=== PATIENT | male | born 1955 | race Caucasian/White ===

== ENCOUNTER 2017-03-09 06:43 | Day surgery (SDC) | payer OTHER ==
[~2017-03-09] VITALS: Ht 170.2 cm; Wt 85.3 kg
[~2017-03-09 06:43] MED LIST: ASPIRIN EC81 MG PO; CALCIUM-MAGNES1 EAC4 PO; CILOSTAZOL100 MG PO; DICLOFENAC SODI75 MG PO; FISH OIL 1,0001 EAC1 PO; FLAGYL500 MG PO; LEVAQUIN500 MG PO; NORCO 5-325 TA1 EACH PO; POTASSIUM99 M1 PO; PROCARDIA XL60 MG PO; VENTOLIN HFA18 GM IH; VITAMIN D250000 UNIT PO; VITAMIN D350000 UNIT PO; ZINC30 MG PO
[2017-03-09] MEDS ORDERED: ANORO ELLIPTA1 EACH INH (07:06)
--- NOTE | 2017-03-09 08:33 | NUR ---
03/09/17 0833 Karon Mcgill report from [facility].
--- NOTE | 2017-03-09 12:35 | NUR ---
PT SITTING IN BED WITH WARM BLANKET ON. HE SEEMED ALERT AND ORIENTED. NOT FIRST SCOPE, SEEMED TO HANDLE PREP APPROPRIATELY. REQUESTED PRAYER, WILL FOLLOW
--- NOTE | 2017-03-10 06:49 | OR ---
[facility] [address], [place] [address] Signed DATE OF PROCEDURE: 03/09/17 PREOPERATIVE DIAGNOSES Personal history of colonic polyps (2013) Open sigmoid resection with Castro side-to-end colorectal anastomosis November 2013. Paternal grandfather with colon cancer in his 70s. POSTOPERATIVE DIAGNOSIS: Internal anal skin tags. PROCEDURE: Colonoscopy without biopsy. ESTIMATED BLOOD LOSS: None. INDICATIONS Luiz is a 62-year-old gentleman who came in 2013 for colonoscopy. He had a large villous adenomatous polyp with focal high-grade dysplasia at 30 cm. He also had other polyps removed. We could not completely remove the polyp at 30 cm, so he had an open sigmoid resection with Castro side-to-end colorectal anastomosis. Fortunately, the pathology came back good with just adenomatous tissue. In addition, his maternal grandfather has history of colon cancer in his 70s. He has done very well from his lower GI standpoint. Unfortunately, he developed pneumonia and had to have that surgically drained. 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 He declined surgery and underwent chemo and radiation to his right upper lung. He has now done well following that. He has been off the oxygen but still gets a little short of breath. He came back in follow-up for repeat colonoscopy. He has been back to work and overall is doing much better. He did have a barium enema, about 6-8 months after his colon surgery and everything was excellent including the anastomosis. He said he is having good bowel movements and overall is feeling much better. I gave Mauricio pamphlet on colonoscopy in the office and we reviewed the nature of the test along with the risks including, but not limited to gas bloating, crampy abdominal pain, bleeding, perforation requiring surgery, and missed diagnosis. We also discussed the need for IV conscious sedation. He had expressed understanding and wished to proceed. PROCEDURE NOTE Luiz was taken in to our endoscopy suite and placed in the left lateral decubitus position. He was given IV sedation with 3 mg of Versed and 100 mcg of fentanyl. A digital rectal exam was performed and this was unremarkable. He does have some induration and little swelling to the prostate consistent with his age. After this, the adult colonoscope was introduced and advanced under direct visualization of the camera up to the cecum without difficulty. His prep was moderate. He had a couple of areas of liquid particulate stool matter that I could not quite irrigate and suction out completely. Nevertheless, we saw no pathology throughout the entire colon or rectum. He Electronically Signed By: DHARMESH GATICA MD 03/10/17 0649 PATIENT NAME: LUIZ HARVEY OPERATIVE REPORT DATE OF : 53 PHYSICIAN: DHARMESH GATICA MD REPORT #: [id number] REPORT IS CONFIDENTIAL AND NOT TO BE RELEASED WITHOUT AUTHORIZATION [address] [address] Signed has no diverticula and no polyps. We could easily see the Castro side-to-end colorectal anastomosis. It is widely patent. There is no ulceration or granulation tissue. We could see the end of the left colon where the koko are and it is well healed as well. The rectum itself was unremarkable. Upon retroflexion of scope, he had has a single internal anal skin tag. After this, the gas was suctioned out. The colonoscope removed. Luiz tolerated the procedure quite well. RECOMMENDATIONS I will see Luiz back in my office in 5 years for repeat colonoscopy. MD PAOLA Esqueda/Shy /[id number] cc: DO Cathryn Oneal MD Electronically Signed By: DHARMESH GATICA MD 03/10/17 0649 PATIENT NAME: LUIZ HARVEY OPERATIVE REPORT DATE OF : 53 PHYSICIAN: DHARMESH GATICA MD REPORT #: [id number] REPORT IS CONFIDENTIAL AND NOT TO BE RELEASED WITHOUT AUTHORIZATION
== END 2017-03-09 09:10 | disposition home or self-care (01) ==
LOC: DS 06:43 → OPS 06:43 → DS 08:15 → OPS 09:10
PROVIDERS: Colon & Rectal Surgery
PROC: 0DJD8ZZ Inspection of Lower Intestinal Tract, Via Natural or Artificial Opening Endoscopic (ICD-10-PCS; principal; 2017-03-09 08:15)
DX: Z12.11 Encounter for screening for malignant neoplasm of colon (principal); K64.4 Residual hemorrhoidal skin tags; K63.89 Other specified diseases of intestine; I10 Essential (primary) hypertension; M19.90 Unspecified osteoarthritis, unspecified site; J44.9 Chronic obstructive pulmonary disease, unspecified; E78.5 Hyperlipidemia, unspecified; M06.9 Rheumatoid arthritis, unspecified; Z80.0 Family history of malignant neoplasm of digestive organs; Z86.010 Personal history of colon polyps; Z87.01 Personal history of pneumonia (recurrent); Z85.118 Personal history of other malignant neoplasm of bronchus and lung; Z90.49 Acquired absence of other specified parts of digestive tract; Z98.890 Other specified postprocedural states; Z87.891 Personal history of nicotine dependence; Z88.0 Allergy status to penicillin; Z79.899 Other long term (current) drug therapy
CPT/HCPCS: 99152; 99153; J2250; J3010; J7120

== ENCOUNTER 2017-06-27 16:58 | Inpatient (IN) | payer OTHER ==
[~2017-06-27] VITALS: Ht 170.2 cm; Wt 87.0 kg
[~2017-06-27 16:58] MED LIST changes: +ANORO ELLIPTA1 EACH INH
--- NOTE | 2017-06-27 20:30 | NUR ---
PT ARRIVED FROM ED VIA STRETCHER. SON'S IN ROOM. PT WEARS 2 HEARING AIDES, NEEDS TO HAVE STAFF LOOK AT HIM TO HELP HIM HEAR. DR. DELGADO STATED THAT PT CAN SIGN A MEDICAL RELASE AND AM ABLE TO RELEASE THE RESULTS OF THE CSCAN. SONS AWARE. PT COMPLETED 2 LITERS FLUIDS, STARTED IN ER. 500 LR BOLUS INFUSING CURRENTLY.
--- NOTE | 2017-06-27 20:49 | NUR ---
SCD'S IN PLACE. TAUGHT PT THE CALL LIGHT, BED CONTROLS. O2 @ 2 LITERS CONTINUES, LR 500 BOLUS INFUSING.
--- NOTE | 2017-06-27 21:18 | NUR ---
LR BOLUS COMPLETE. TOTAL OF 1000 CC INFUSED ONCE PT ADMITTED TO ER. CTSCAN REVEIWED BY RN WELL ANTOINE HARVEY, PER DR. DELGADO REQUEST POST A MED RELEASE SIGNED. WELL DR DELGADO IN TO READ REPORT TO PT WELL GAVE A COPY TO PT.
--- NOTE | 2017-06-27 22:45 | NUR ---
PT STOOD TO VOID 450 CC. INCREASED SOB WHEN MOVING, BUT SATS REMAINED IN THE MID 90'S ON 2 L. PT STATES THAT HE FEELS "SO MUCH BETTER COMPARED TO COMING TO THE ER". STATES THAT HE ISN'T AT BASELINE YET. ASSISTED BACK TO BED, SCD'S IN PLACE, CALL CRUZ WITHIN REACH.
--- NOTE | 2017-06-28 00:33 | NUR ---
CHECKED IN ON PT. PT WOKE, DENIED DISCOMFORT. ASKED PT IF HE NEEDED ANYTHING, HE SAID NO. SAID HE WAS SLEEPING OFF AND ON, DENIES COUGHING. NOTED HOB HAS BEEN LOWERED BY PT TO 45% VS THE 95% HE WAS IN EARLIER. PULSE OX READING 96% ON 2L, WITH HR @ 100. PT STATES HE IS "OK AT THIS TIME".
--- NOTE | 2017-06-28 05:44 | NUR ---
WOKE PT FOR MORNING VS, NEEDED MORE FLUIDS. PT MOSTLY SLEEPY. NO CHANGE IN CONDITION SINCE LAST ASSESSMENT. DENIES COUGHING. IV FLUIDS CONTINUE PER ORDER. CALL CRUZ WITHIN REACH.
--- NOTE | 2017-06-28 06:32 | NUR ---
PT ADMITTED TO M/S FROM ER, AFTER HAVING SOB AND COUGH. H/O LUNG CANCER, 2016, TREATED WITH CHEMO/RADIATION. PT IN ISOLATION, ALTHOUGH BOTH INFLUENZA A AND B ARE NEGATIVE. PT IS A SBA, USES URINAL AT BEDSIDE. VOIDING ADEQUATE. CONTINOUS PULSEOX, SCD'S IN PLACE. DENIED PAIN, DENIED COUGING WITH ALL PT CONTACT THIS NURSE HAD. DID HAVE HOB ELEVATED 45-90% OFF AND ON. PT REFUSED OFFERS OF FOOD, STATING HE WILL BE HUNGRY AT BREAKFAST. IS HARD OF HEARING DESPITE WEARING MAC HEARING AIDES. STATES THAT HE "READS LIPS" WHICH IS DIFFICULT WITH THE FACIAL MASK STAFF ARE WEARING. NEED TO SPEAK TO HIS FACE WHEN TALKING TO HIM SO HE HEARS.
--- NOTE | 2017-06-28 07:50 | NUR ---
RN IN ROOM TO SEE PATIENT. PATIENT WILL CALL WHEN HE HAS URINATED.
--- NOTE | 2017-06-28 07:52 | NUR ---
RECIEVED REPORT FROM ALIRIO GARCIA AT PT'S DOORWAY. PT AWAKE, ALERT, ORIENTED X 4. PT [place], BUT ABLE TO UNDERSTAND THIS RN. ANSWERED QUESTIONS APROPRIATELY. DENIED SHORTNESS OF BREATH AT REST, REPORTED THAT SHORTNESS OF BREATH OCCURS WHEN HE MOVES, STANDS. PT'S OXYGEN SATURATION LEVEL 97% ON 2L O2 VIA NC, TITRATED PT TO 1L O2 VIA NC. OXYGEN SATURATION LEVEL 93-96%.
--- NOTE | 2017-06-28 08:59 | NUR ---
PATIENT SITTING UP IN BED WATCHING TV. HANDS AND FACE WASHED. PATIENT REFUSED SHOWER. ORAL CARE SET UP FOR USE. NO OTHER NEEDS AT THIS TIME. CALL BUTTON IN REACH.
--- NOTE | 2017-06-28 09:05 | NUR ---
PT TOOK AM MEDICATIONS. IS SITTING UP IN BED, WATCHING TV. REMAINS ON 1L O2, OXYGEN SATURATION LEVEL 92-94%. PT DENIED PAIN. ATE 100% OF BREAKFAST.
--- NOTE | 2017-06-28 11:11 | NUR ---
PT SITTING UP IN BED, AWAKE, ALERT, ORIENTED X 4. URINE OUTPUT QUANTITY SUFFICIENT. URINE CLEAR YELLOW. PT DENIED PAIN. POSITIONS SELF IN BED.
--- NOTE | 2017-06-28 11:43 | NUR ---
PT SITTING UP IN RECLINER. REPORTED SOME ABDOMINAL CRAMPING, WHICH IMPROVED WITH PASSING GAS. REPORTED THAT HE STILL HAS A HEADACHE, BUT THAT THE INTENSITY OF HIS HEADACHE HAS DIMINISHED, RATED PAIN 2/10. PT'S FATHER IN ROOM WITH PT AT THIS TIME.
--- NOTE | 2017-06-28 13:09 | NUR ---
PT SITTING UP IN BED. SALINE LOCKED IV. PT'S OXYGEN SATURATION LEVEL 97%, TITRATED PT TO RA. PT REMAINS ON CONTINUOUS PULSE OX. WILL MONITOR PT'S TOLERANCE OF RA.
--- NOTE | 2017-06-28 13:40 | NUR ---
PT EXPECTORATED SMALL AMOUNT OF AGUILAR SPUTUM IN SPECIMEN CUP. SENT TO LAB. PT ON ROOM AIR, OXYGEN SATURATION LEVEL 93% AT REST. PT AMBULATED IN HALLWAY WITH MASK AND GLOVES ON, WALKED FROM ROOM 119, DOWN TO SECOND RN STATION, AROUND "SMALL LOOP", AND BACK TO ROOM 119. CHECKED PT'S OXYGEN SATURATION LEVEL IMEDIATELY FOLLOWING AMBULATION, AND PT'S OXYGEN SATURATION LEVEL WAS 90-92% ON RA. PT DENIED PAIN, DENIED SHORTNESS OF BREATH.
--- NOTE | 2017-06-28 14:35 | NUR ---
PT'S SON IN TO SEE PT, ASKED FOR UPDATE. THIS RN ASKED PT IF IT WAS OK TO GIVE UPDATE, PT SAID THAT THAT WAS OK. GAVE SON UPDATE IN ROOM WITH PT. PT DENIED OTHER NEEDS. REMAINS ON ROOM AIR, SAT 92%.
--- NOTE | 2017-06-28 14:45 | NUR ---
PATIENT RESTING IN BED WITH FRIEND IN ROOM. FRESH ICE WATER GIVEN. CALL BUTTON IN REACH. NO OTHER NEEDS AT THIS TIME.
--- NOTE | 2017-06-28 17:08 | NUR ---
Medications reconciled with pharmacy records and patient interview
--- NOTE | 2017-06-28 17:33 | NUR ---
PT SITTING UP IN BED, EATING DINNER. DENIED PAIN, DENIED NEEDS. THIS RN EMPTIED URINAL, PT HAD VOIDED 300 CC CLEAR YELLOW URINE.
--- NOTE | 2017-06-28 17:35 | NUR ---
PT TITRATED FROM 2L O2 VIA NC TO RA, REMAINS ON CONTINOUS PULSE OX, OXYGEN SATURATION LEVEL 90% OR GREATER. AMBULATED IN HALLS ON RA, MAINTAINED OXYGEN SATURATION LEVEL 90-92%. PT HAS DENIED PAIN THROUGHOUT SHIFT. URINE OUTPUT QUANTITY SUFFICIENT. LUNGS CLEAR, DIMINISHED THROUGHOUT. DROPLETTE PRECAUTIONS IN PLACE.
--- NOTE | 2017-06-28 18:00 | NUR ---
PATIENT SITTING UP IN BED WATCHING TV. CALL BUTTON IN REACH. FRESH ICE WATER GIVEN. NO OTHER NEEDS AT THIS TIME.
--- NOTE | 2017-06-28 19:15 | NUR ---
RECIEVED REPORT FROM GEMMA AMEZQUITA. PT LAYING IN BED. FAMILY HERE TO VISIT. PT HAS NO FURTHER NEEDS AT THIS TIME. CALL LIGHT IN REACH.
--- NOTE | 2017-06-28 22:44 | NUR ---
PT AWAKE, VITALS DONE. DENIES PAIN, STATES HE IS FEELING BETTER. IV ANTIBIOTICS AND MEDS ADMINISTERED. CALLBELL WITHIN REACH. DENIES OTHER NEEDS.
--- NOTE | 2017-06-28 23:48 | EKG ---
[facility] [address] [facility] [place] [address] Signed Sinus tachycardia Left axis deviation Nonspecific ST abnormality Abnormal ECG No previous ECGs available Confirmed by SANGITA DELGADO MD ([id number]) on 06/28/2017 11:48:22 PM Electronically Signed By: SANGITA DELGADO MD 06/28/17 2348 PATIENT NAME: LUIZ HARVEY Electrocardiogram DATE OF : 53 PHYSICIAN: SANGITA DELGADO MD REPORT #: [id number] REPORT IS CONFIDENTIAL AND NOT TO BE RELEASED WITHOUT AUTHORIZATION
--- NOTE | 2017-06-29 02:59 | NUR ---
PT APPEARS TO BE SLEEPING. RR WNL AND UNLABORED.
--- NOTE | 2017-06-29 07:24 | NUR ---
RECIEVED REPORT FROM ALIRIO LEON. PT AWAKE, SITTING UP IN BED. REMAINS ON RA, OXYGEN SATURATION LEVEL 92%. PT REPORTED THAT HE STILL HAS AN OCCASIONAL NONPRODUCTIVE COUGH, DENIED SHORTNESS OF BREATH. DENIED PAIN. PT REQUESTED COFFEE, PROVIDED CUP OF COFFEE. PT DENIED OTHER NEEDS AT THIS TIME.
--- NOTE | 2017-06-29 08:00 | NUR ---
PATIENT SITTING UP IN BED WATCHING TV. HANDS AND FACE WASHED. ORAL CARE DONE. TALKED TO PATIENT ABOUT TAKING A SHOWER. PATIENT WOULD LIKE TO SEE IF HE GETS TO GO HOME. SHOWER IS SET UP AND READY. CALL BUTTON IN REACH. NO OTHER NEEDS AT THIS TIME.
--- NOTE | 2017-06-29 08:26 | NUR ---
PT SITTING UP IN BED, WATCHING TV. DENIES SHORTNESS OF BREATH. ON RA, OXYGEN SATURATION LEVEL 91%. GAVE SCHEDULED AM MEDICATIONS.
--- NOTE | 2017-06-29 09:00 | NUR ---
PATIENT UP TO SHOWER.
--- NOTE | 2017-06-29 09:25 | NUR ---
PT AMBULATED IN HALLS WITH RT RAMBO ON ROOM AIR. RAMBO REPORTED TO THIS RN THAT HE MONITORED PT'S OXYGEN SATURATION LEVEL WHILE AMBULATING WAS 88-89% PT NOW BACK IN BED, WATCHING TV.
--- NOTE | 2017-06-29 11:00 | NUR ---
PATIENT SITTING UP IN BED FRESH ICE WATER GIVEN. CALL BUTTON IN REACH. NO OTHER NEEDS AT THIS TIME.
--- NOTE | 2017-06-29 11:17 | NUR ---
PT SITTING UP IN BED, WATCHING TV. ON ROOM AIR, OXYGEN SATURATION 92%. PT DENIED PAIN, DENIED NEEDS AT THIS TIME.
--- NOTE | 2017-06-29 11:34 | NUR ---
ASSISTED PT IN ORDERING LUNCH. PT DENIED OTHER NEEDS. PT SITTING UP AT EDGE OF BED.
[2017-06-29] MEDS ORDERED: CEFPODOXIME PR200 MG PO (13:19)
[2017-06-29] MEDS ORDERED: AZITHROMYCIN500 MG PO (13:23)
[2017-06-29] MEDS ORDERED: TAMIFLU75 MG PO (13:23)
--- NOTE | 2017-06-29 13:32 | NUR ---
PATIENT SITTING UP IN CHAIR GETTING DRESSED IN HOME CLOTHES. FRESH ICE WATER GIVEN. NO OTHER NEEDS AT THIS TIME.
== END 2017-06-29 14:40 | disposition home or self-care (01) | DRG 193 ==
LOC: ED 16:58 → MS 19:48
PROVIDERS: ADMIT Internal Medicine
DX: J11.00 Influenza due to unidentified influenza virus with unspecified type of pneumonia (principal); J96.01 Acute respiratory failure with hypoxia; Z87.891 Personal history of nicotine dependence; J44.9 Chronic obstructive pulmonary disease, unspecified; Z85.118 Personal history of other malignant neoplasm of bronchus and lung; M06.9 Rheumatoid arthritis, unspecified; Z90.49 Acquired absence of other specified parts of digestive tract; Z88.0 Allergy status to penicillin
CPT/HCPCS: 36415; 71045; 71260; 80053; 83605; 83735; 83880; 84484; 85025; 85379; 87040; 87070; 87077; 87186; 87205; 87449; 87502; 93005; 93010; 94640; 94645; 94762; 96361; 96374; 96375; 99285; J0456; J0696; J2930; J7030; J7120; Q9967

== ENCOUNTER 2018-08-06 15:51 | Inpatient (IN) | payer OTHER ==
[~2018-08-06] VITALS: Ht 170.2 cm; Wt 97.2 kg
[~2018-08-06 15:51] MED LIST changes: +AZITHROMYCIN500 MG PO; +BREO ELLIPTA 21 EACH INH; +CEFPODOXIME PR200 MG PO; +INCRUSE ELLI62.5 MCG INH; +LEVAQUIN750 MG PO; +OXYBUTYNIN CHLOR5 MG PO; +PREDNISONE10 MG PO; +TAMIFLU75 MG PO
--- NOTE | 2018-08-06 21:00 | NUR ---
PT ARRIVED TO UNIT [facility] ED VIA STRETCHER, FAMILY AT BEDSIDE. PT A&O X4 AND RESPONDING APPROPRIATELY. TACHYPNEA, PRODUCTIVE COUGH WITH THICK AGUILAR/RED SPUTUM, EXPIRATORY WHEEZE HEARD THROUGHOUT, LLL DIMINISHED, RLL COURSE, VAPOTHERM AT 20L AND 60%, DENIES DIFFICULTY BREATHING, PT STATES "I FEEL MUCH BETTER THAN I DID EARLIER." TACHYCARDIA NOTED. ABD DISTENDED, NONTENDER, BOWEL TONES ACTIVE X4, DENIES NAUSEA. PT DUE TO VOID, STATES OCCASSIONAL INCONTINENCE. SKIN GRAFTS TO BLE, BASELINE NUMBNESS TO BLE. LR BOLUS INFUSING. IV SITE FLUSHED, PATENT, WNL. ORIENTED TO ROOM AND PLAN FOR EVENING. EDUCATION PROVIDED TO FAMILY REGARDING CURRENT ILLNESS, ALL QUESTIONS ANSWERED. DENIES OTHER NEEDS. CALL LIGHT WITHIN REACH.
--- NOTE | 2018-08-06 22:00 | NUR ---
PT REQUESTS URINAL, STATES HE FEELS NEED TO VOID BUT ISN'T READY YET. LR INFUSING AT 125 ML/HR. PT STATES IMPROVEMENT IN SYMPTOMS. DENIES OTHER NEEDS.
--- NOTE | 2018-08-06 22:20 | NUR ---
STOOD AT BEDSIDE TO VOID. SUMA FAIR, HR TO 120'S, MILD IN SOB RECOVERED QUICKLY. VOIDED 250 ML KENYON URINE.
--- NOTE | 2018-08-06 22:47 | NUR ---
IV FLUIDS INCREASED TO 200 MLS/HR. PT SITTING AT EDGE OF BED VISITING WITH FAMILY. PT ABLE TO SPEAK IN FULL SENTENCES, SPO2 96% ON 20L AT 60%, RR 18, NO ACUTE DISTRESS NOTED.
--- NOTE | 2018-08-07 00:23 | NUR ---
PT SPO2 TRENDING IN THE 97-98% ON 60% FIO2 AND 20L. DISCUSSED WITH R/T. TITRATED TO 15L AND 50% ON FIO2 AT THIS TIME. WILL CONTINUE TO MONITOR.
--- NOTE | 2018-08-07 00:37 | NUR ---
PT RESTING IN BED, AWAKENS EASILY, ORIENTED TO ALL. PT NOW AFEBRILE, HR DECREASED TO LOW 100'S, BP 138/71, RR 18-20. PT'S LUNGS SOUNDS IMPROVING FROM PREVIOUS ASSESSMENT, NO EXPIRATORY WHEEZE, BUL CLEAR, BLL CLEAR/DIMINSHED, DECREASED COUGH WITH MINIMAL SPUTUM. TOLERATING DECREASE IN VAPOTHERM. PT STATES "I'M FEELING BETTER, JUST TIRED." DENEIS OTHER NEEDS. CALL LIGHT WITHIN REACH.
--- NOTE | 2018-08-07 01:12 | NUR ---
PT SBA TO BEDSIDE TO USE URINAL, VOIDED 250 ML. DENIES SOB, ABLE TO SPEAK IN FULL SENTENCES, SPO2 93% ON 15L FIO2 50%. ASSISTED BACK TO BED. PT REQUESTING TO HAVE SCD IN PLACE. PT STATES, "I LIKE HAVING THEM ON WHEN I'M IN THE HOSPITAL DUE TO THE GRAFTS IN MY LEGS." SCDS APPLIED. DENIES OTHER NEEDS. CALL LIGHT WITHIN REACH.
--- NOTE | 2018-08-07 03:03 | NUR ---
PT SBA TO BEDSIDE YO USE URINAL, GAIT STEADY, INCREASED WOB, RR 22. ASSISTED BACK TO BED, SPO2 94%, RR 20, DENIES SOB, ABLE TO SPEAK IN FULL SENTENCES.
--- NOTE | 2018-08-07 04:00 | NUR ---
PT REMAINS AFEBRILE, VITAL SIGNS WNL. VAPOTHERM AT 15L WITH 60% FIO2. BUL REMAIN CLEAR, DIMINSHIED FINE CRACKLES TO BLL, PT STATES HE FEEL NEED TO COUGH BUT COUGH NONPRODUCTIVE AT THIS TIME. LR INFUSING AT 125 ML/HR.
--- NOTE | 2018-08-07 05:38 | NUR ---
PT RESTING IN BED WITH EYES CLOSED, RESPIRATIONS EVEN AND UNLABORED, NO ACUTE DISTRESS. NO ACUTE CHANGES.
--- NOTE | 2018-08-07 06:32 | NUR ---
PT SLEPT FOR SHORT PERIODS OF TIME THROUGHOUT NIGHT. PT AWAKENS EASILY, A&0, AND RESPONDS APPROAPRIATELY. HR HAS DECREASED FROM SINUS TACH TO SINUS RHYTHM IN 95-99 RANGE, LAST BP 128/56. SPUTUM SAMPLE NEEDED, INSTRUCTIONS POVIDED AND CUP AT BEDSIDE. EXPIRATORY WHEEZE THROUGHOUT NOTED IN ALL LUNGS HERNANDEZ WITH DIMINSHED COURSE BLL ON ADMISSION. BUL NOW CLEAR, BLL DIMINSHED WITH FINE CRACKLES. VAPOTHERM TITRATED FROM 20LPM WITH 60%FIO2 TO 15LPM WITH 50%FIO2 AND TOELRATING WELL. COUGH WITH AGUILAR SPUTUM PRODUCTION CONTINUES BUT IMPROVING. GENERALIZED TRACE EDEMA WITH +1 EDEMA TO BLE. SCD IN PLACE PER PT REQUEST. LR INFUSING AT 125 ML/HR. VOIDING QS.
--- NOTE | 2018-08-07 09:15 | NUR ---
CHECKED IN WITH PATIENT AFTER BREAKFAST. PERFORMED HEAD TO TOE EXAMS. PATIENT IS UPRIGHT BREATHING STEADILY, DOES NOT APPEAR TO BE IN DISTRESS. PATIENT HAS NO COMPLAINTS OF PAIN. PATIENT URINATED AT 740, PATIENTS URINE WAS YELLOW. PATIENT RESPIRATIONS INCREASED SHORTLY AFTER EXAM DUE TO TALKING AND MOVING AROUND. PATIENTS SON HAD SHOWN UP, PATIENT ACTIVELY ENGAGED IN SPEAKING ABOUT SPORTS. PATIENT RESPIRATIONS INCREASED TO 30. UPON LEAVING THE ROOM PATIENT HAD NO NEEDS OR COMPLAINTS AT THIS TIME.
--- NOTE | 2018-08-07 10:58 | NUR ---
PT HOUSE CONVINCED AT THIS TIME. PT MAY GO TO THE MS UNIT LATER TODAY.
--- NOTE | 2018-08-07 11:00 | NUR ---
pt has been sitting at the edge of the bed talking with family. He is not having any c/o's at this time. All questins answered.
--- NOTE | 2018-08-07 12:00 | NUR ---
pt sitting at the edge of the bed eating lunch, family has been in and out the room this am. Pt and son currently watching tva nd talking about engines. No c/o's at this time. Dr Miles into see pt, pt is transfer to the M/S unit at some point today. All family is aware that he may go over at somepoint today.
--- NOTE | 2018-08-07 14:20 | NUR ---
CHECKED IN WITH PATIENT AT 1400 TO ADMINISTER MEDICATION. PATIENT HAD NO COMPLAINTS OR CONCERNS AT THIS TIME. MEDICATION WAS ADMINISTERED OVER 5 MINUTES AND WAS FOLLOWED BY A FLUSH. PATIENT IN NO OBVIOUS DISTRESS. IV SITE FLUSHED WELL. PATIENT HAD NO COMPLAINTS FOLLOWING INFUSION.
--- NOTE | 2018-08-07 15:00 | NUR ---
PT RENIES ANY C/O'S AT THIS TIME. PT SON REMAINS IN THE ROOM WITH HIS DAD. THEY HAVE BEEN WATCHING TV ALL AFTERNOON.
--- NOTE | 2018-08-07 18:12 | NUR ---
CONTACTED [facility] TO TRANSFER PATIENT AT 1730. SPOKE WITH EDGAR AMEZQUITA AT MED SURG TO TURN OVER PATIENT INFORMATION. ALL ITEMS MOVED TO NEW PATIENT ROOM, 116, PATIENT STATED ALL ITEMS PRESENT. PATIENT WAS PUT ON OXYGEN 4L IN NEW ROOM. AIRCRAFT SEAT UPHOLSTERER CONTACTED FOR TRANSFER.
--- NOTE | 2018-08-07 18:23 | NUR ---
PT TRANSFERED TO FLOOR FROM CCU WITH WARD, STUDENT RN. PT IN CHAIR, WITH SPOUSE AT BEDSIDE. PT HAD DINNER ON THE UNIT. PT ON 4L O2 HUMIDIFIER, CHRONIC 6L AT HOME. TOLERATING 4L WELL. PT HAS SCHEDULED NEB TREATMENTS. PT HAS DENTURES, DOES NOT TAKE THEM OUT. PT HARD OF HEARING. PT HAS HX OF SKIN GRAFTS ON BLE, CHRONIC NUMBNESS. REG DIET WITH ACCU-CHECK D/T STEROID USE.
--- NOTE | 2018-08-07 18:32 | NUR ---
THIS WASHER REPAIRMAN AGREE WITH STUDENT NURSE WARD FROM [facility] ALL CHARTING AND ASSESSMENT REVIEWED.
--- NOTE | 2018-08-07 19:20 | NUR ---
CHARGE NURSE REPORT RECEIVED FROM LESLIE. PT IN BED, DOING A NEB TREATMENT. NO NEEDS AT THIS TIME.
--- NOTE | 2018-08-07 21:48 | NUR ---
PT ASSESSMENT COMPLETE. PT SITTING AT BEDSIDE AFTER USING URINAL. PT DENIES PAIN OR NAUSEA. REPORTS SLIGHTLY SOB AFTER USING URINAL. PT DENIES NEED FOR INTERVENTION. O2 @ 5LPM VIA NC. PT REPORTS OCCASIONAL COUGH WITH SPUTUM PRODUCTION, STATES THAT SPUTUM IS GETTING HARDER TO GET UP. LUNG SOUNDS ADVENTITIOUS. PT'S HANDS WITH GENERALIZED EDEMA BILATERALLY, BLE'S 1+ EDEMA. PT REQUESTS ICE WATER X 2 CUPS, PROVIDED. PT DENIES FURTHER NEEDS AT THIS TIME. CALL LIGHT IN REACH.
--- NOTE | 2018-08-07 23:30 | NUR ---
pt sitting up at bedside using urinal, denies need at this time. call light in reach.
--- NOTE | 2018-08-08 02:26 | NUR ---
PT RESTING IN BED WITH EYES CLOSED. RESPIRATIONS SHALLOW AND TACHYPNEIC, NO S/SX OF DISTRESS NOTED. O2 IN PLACE APPROPRIATELY. PT DOES NOT WAKE WHILE WRTIER IN DOORWAY. CALL LIGHT IN REACH.
--- NOTE | 2018-08-08 03:25 | NUR ---
PT ASSESSMENT COMPLETE. PT WAKES EASILY WHILE CLIENT TECHNICAL SPECIALIST EMPTYING URINAL. PT DENIES PAIN OR NAUSEA. STATES SOB IS AT BASELINE. O2 VIA NC @ 5LPM. LUNGS CONTINUE TO BE ADVENTITIOUS. PT DENIES NEEDS AT THIS TIME. CALL LIGHT IN REACH.
--- NOTE | 2018-08-08 05:32 | NUR ---
PT SLEPT WELL THIS SHIFT. PT CONTINUES TO HAVE SOB. STATES IT IS HARD TO TELL IF IT IS AT BASELINE. O2 @ 5LPM. LUNG SOUNDS ADVENTITIOUS. SMALL AMOUNT OF OCCASIONAL SPUTUM PRODUCTION, PT FEELS IT IS BECOMING MORE DIFFICULT TO MOBILIZE. TRACE TO 1+ EDEMA TO HANDS AND BLE'S. UO QS. PT USING URINAL @ BEDSIDE. WAINWRIGHT. IV SL.
--- NOTE | 2018-08-08 07:32 | NUR ---
PATIENT SITTING UP IN BED. FRIEND IN ROOM. PATIENT'S BREAKFAST ORDERED.
--- NOTE | 2018-08-08 07:57 | NUR ---
RECIEVED BEDSIDE REPORT FROM ALIRIO CASTILLO. PT AWAKE AND ALERT IN BED, VISITOR AT BEDSIDE. PT STATES NO NEEDS AT THIS TIME. O2 AT 5L, 6L CHONIC AT HOME.
--- NOTE | 2018-08-08 09:24 | NUR ---
PATIENT IN BED WATCHING TV. VITAL SIGNS AND I&O DONE. CALL LIGHT WITHIN REACH. ICE WATER GIVEN. NO OTHER NEEDS AT THIS TIME
--- NOTE | 2018-08-08 11:50 | NUR ---
PT UP TO SHOWER WITH [facility]. DURING SHOWER, PT'S O2 SAT DROPPED TO 75%. DR. GOLD WAS IN ROOM AND BUMPED HIM UP TO 6L. PT'S SAT RETURNED TO 95%. RN WAS IN ROOM TO GET BLOOD SUGAR, CBG OF 126. PT TALKING WITH CASE MANAGEMENT.
--- NOTE | 2018-08-08 12:29 | NUR ---
SPOKE WITH PATIENT IN ROOM. PATIENT SITTING UP AT SIDE OF BED FOR LUNCH. PATIENT LIVING ALONE STILL WITH SUPPORT OF ADULT CHILDREN IN AREA. PATIENT USES OXYGEN 5-6L AT HOME CHRONICALLY. STATES HE STILL HAS ALL EQUIPMENT NEEDED. PATIENT STATES HE SAW PCP IN OFFICE WEDNESDAY, BUT EVEN THEN HE ENDED UP HAVING TO COME INTO ED ON WEDNESDAY. HIS WISH IS TO RETURN HOME AT DISCHARGE. WILL CONTINUE TO FOLLOW.
--- NOTE | 2018-08-08 13:17 | NUR ---
PATIENT RESTING IN BED. VITAL SIGNS AND I&O DONE. CALL LIGHT WITHIN REACH. NO OTHER NEEDS AT THIS TIME
--- NOTE | 2018-08-08 14:02 | NUR ---
PT SLEEPING SOUNDLY, O2 IN PLACE AT 6L. BREATHING EVEN, APPEARS AT BASELINE.
--- NOTE | 2018-08-08 14:41 | NUR ---
PATIENT RESTING IN BED. IN ROOM. CRYO FILLED. CALL LIGHT WITHIN REACH. NO OTHER NEEDS AT THIS TIME
--- NOTE | 2018-08-08 17:23 | NUR ---
PATIENT SITTING UP IN BED. VITAL SIGNS AND I&O DONE. CALL LIGHT WITHIN REACH. ICE WATER GIVEN. NO OTHER NEEDS AT THIS TIME
[2018-08-08] MEDS ORDERED: OXYBUTYNIN CHLO10 MG PO (18:16)
--- NOTE | 2018-08-08 18:17 | NUR ---
Medications reconciled using pharmacy records and patient interview
--- NOTE | 2018-08-08 19:00 | NUR ---
DISTRICT WIRE CHIEF DONE. PATIENT RESTING IN BED. 4L NC. PATIENT REPORTS FEELING BETTER TONIGHT. NO CONCERNS AT THIS TIME. FAMILY IN ROOM.
--- NOTE | 2018-08-08 19:10 | NUR ---
BEDSIDE REPORT RECEIVED FROM OFFGOING RN. PT VISITING WITH HIS SONS. DENIES NEEDS AT THIS TIME. CALL LIGHT IN REACH.
--- NOTE | 2018-08-08 21:47 | NUR ---
PT ASSESSMENT COMPLETE. PT DENIES PAIN AND NAUSEA. STATES THAT SOB IS MANAGABLE. PT ON 6LPM VIA NC. PT REPORTS CONTINUED OCCASIONAL COUGH. GENERALIZED EDEMA PRESENT TO BILATERAL HANDS, 1+ TO TRACE EDEMA PRESENT IN B FEET. PT DENIES NEEDS AT THIS TIME. CALL LIGHT IN REACH.
--- NOTE | 2018-08-09 01:45 | NUR ---
PT RESTING IN BED WITH EYES CLOSED. RESPIRATIONS EVEN AND UNLABORED. PT APPEARS TO BE SLEEPING. 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 CALL LIGHT IN REACH.
--- NOTE | 2018-08-09 03:54 | NUR ---
PT ASSESSMENT COMPLETE. PT RESTING IN BED AWAKE WATCHING TV. HE DENIES PAIN OR NAUSEA. STATES THAT SOB IS UNCHANGED FROM PREVIOUS. O2 IN PLACE AT 6LPM. LUNG SOUNDS DIMINISHED THROUGHTOUT. PT CONTINUES TO REPORT OCCASIONAL COUGH WITH SPUTUM PRODUCTION. PT DENIES NEEDS AT THIS TIME. CALL LIGHT IN REACH.
--- NOTE | 2018-08-09 07:00 | NUR ---
BEDSIDE HANDOFF REPORT RECEIVED FROM RAWHIDE TRIMMER RN. PT SITTING ON EDGE OF BED, SON AT BEDSIDE. PT DENIES NEEDS AT THIS TIME.
--- NOTE | 2018-08-09 08:45 | NUR ---
PT RESTING IN BED. PT ON 5L NC, O2 SATS 100%, RR 32, DENIES FEELING MORE SOB, WEARS 6L NC AT BASELINE, LUNG SOUNDS DIM WITH EXPIRATORY WHEEZE AND CRACKELS TO RIGHT LOWER LOBE. PT DENIES PAIN. EDEMA TO BLE, 2+, PULSES [place], EXTREMITIES WARM, DENIES NUMBNESS/TINGLING. PT SALINE LOCKED. BOWOWL TONES ACTIVE, DENIES NAUSEA, TOLERATING DIET. DISCUSSED PLAN OF CARE FOR THE DAY. PT DENIES OTHER NEEDS.
--- NOTE | 2018-08-09 09:15 | NUR ---
DR. DELGADO NOTIFIED OF RR OF 32, NO NEW ORDERS.
--- NOTE | 2018-08-09 10:00 | NUR ---
PT DECLINES SHOWER AT THIS TIME. STATED THAT HE WILL TAKE HOME WHEN HE GOES HOME UNLESS PLANS CHANGE.
--- NOTE | 2018-08-09 10:38 | NUR ---
MD TO BEDSIDE. PLAN TO STAY FOR A COUPLE MORE DAYS TO RECEIVE IV STEROIDS. PT UNDERSTANDS AND AGREEABLE. PT REQUESTING TO SHOWER, CUSTOMER SUCCESS ASSOCIATE TO ASSIST PT.
--- NOTE | 2018-08-09 11:22 | NUR ---
PT SITTING UP IN BED, TV ON.HE APPEARS TO BE ALERT, ORIENTED AND PLEASANT. HE STATED THAT HE IS FEELING MUCH BETTER, HOWEVER ISN'T SLEEPING WELL. HE SAID I WILL JUST SLEEP AT HOME. EXTENDED A BLESSING, WILL FOLLOW NEEDED
--- NOTE | 2018-08-09 13:55 | NUR ---
PT RESTING IN BED. PT LUNG SOUNDS CONTINUE TO BE DIM WITH EXPIRATORY WHEEZE TO RIGHT SIDE, BREATHING LESS LABORED, ON 5L NC. NO ACUTE CHANGES. PT WITH GOOD ORAL INTAKE. PT DENIES NEEDS AT THIS TIME.
--- NOTE | 2018-08-09 15:32 | NUR ---
PT WALKING IN SAINI WITH Brian
--- NOTE | 2018-08-09 17:15 | NUR ---
PT SITTING ON SIDE OF BED EATING, VISITOR AT BEDSIDE. PT DENIES NEEDS AT THIS TIME.
--- NOTE | 2018-08-09 17:31 | NUR ---
PT ON 5L NC, LUNG SOUNDS DIM WITH EXPIRATORY WHEEZE, SCHEDULED NEBS AND SOLUMEDROL. PT WALKED IN SAINI WITH P.T., TOLERATED ACTIVITY BETTER TODAY. PT TOLERATING DIET. SALINE LOCKED. VOIDING QS.
--- NOTE | 2018-08-09 19:09 | NUR ---
RECIEVED CHANGE OF SHIFT REPORT FROM SAMMY AMEZQUITA. PATIENT LAYING AWAKE WITH FAMILY AT BEDSIDE. WHITE BOARD UPDATED. CALL LIGHT WITHIN REACH. 5L VIA NC, NO SIGNS OF RESPIRATORY DISTRESS. NO MORE NEEDS AT THIS TIME.
--- NOTE | 2018-08-09 21:30 | NUR ---
ASSESSMENT COMPLETE. MEDICATIONS ADMINISTERED PER MAR ORDER. PATIENT DENIES CHEST PAIN. PATIENT REPORTS SOB, PATIENT REPORTS SOB IS NOT OUTSIDE OF WHAT IS NORMAL FOR HIM. EXPIRATORY WHEEZES AUSCULATED IN THE LLL AND IN THE RUL, NO SIGNS OF RESPIRATORY DISTRESS. PATIENT ABLE TO TALK IN COMPLETE SENTENCES DURING ASSESSMENT. 5L VIA NC. 2+ EDEMA IN LLE, AND 1+ EDEMA IN RLE. PATIENT REFUSED SCDs. IV ASSESSED TO BE PATENT, WNL. RESPIRTORY THERAPIST IN ROOM PROVIDING BREATHING TREATMENT. FRESH WATER BROUGHT TO PATIENT. CALL [facility]
--- NOTE | 2018-08-09 23:00 | NUR ---
ROUNDED ON PATIENT RESTING IN BED ON RIGHT SIDE WITH EYES CLOSED. RESPIRATORY RATE IS EVEN AND UNLABORED. NO SIGN OF RESPIRATORY DISTRESS. CALL LIGHT WITHIN REACH.
--- NOTE | 2018-08-10 00:33 | NUR ---
ROUNDED ON PATIENT RESTING IN BED WITH EYES CLOSED. RESPIRATORY RATE IS EVEN AND UNLABORED. NO SIGNS OF RESPIRATORY DISTRESS. CALL LIGHT WITHIN REACH.
--- NOTE | 2018-08-10 01:54 | NUR ---
ROUNDED ON PATIENT RESTING IN BED WITH EYES CLOSED, RESPIRATORY RATE IS EVEN AND UNLABORED. NO SIGNS OF RESPIRATORY DISTRESS. CALL LIGHT WITHIN REACH.
--- NOTE | 2018-08-10 02:00 | NUR ---
ROUNDED ON PATIENT AFTER PATIENT USED CALL LIGHT TO NOTIFY NURSING STAFF THAT HE WAS USING THE RESTROOM. PATIENT DENIES HAVING DIZZINESS WITH AMBULATION. PATIENT REPORTS SOB AND EXHIBITS WITH SOB WITH AMBUATION. PATIENT SAT ON THE SIDE OF BED FOR A COUPLE OF MINUTES TO "CATCH MY BREATH" BEFORE LAYING DOWN. PATIENT SAFELY IN BED, WITH CALL LIGHT WITHIN REACH. NO MORE NEEDS AT THIS TIME.
--- NOTE | 2018-08-10 04:25 | NUR ---
ASSESSMENT COMPLETE. IV ASSESSED TO BE PATENT, WNL. PATIENT DENIES CHEST PAIN. PATIENT REPORTS SOB IS "WITHIN MY NORMAL AMOUNT NOW". PATIENT ABLE TO TALK IN CLEAR AND CONCISE SENTENCES. PATIENT REPORTS PASSING FLATUS. 5L VIA NC, NO SIGN OF RESPIRATORY DISTRESS. EXPIRATORY WHEEZE AUSCULATED IN LOWER LOBES OF LUNGS, INCENTIVE SPIROMETER AT BEDSIDE. CALL LIGHT WITHIN REACH. NO MORE NEEDS AT THIS TIME.
--- NOTE | 2018-08-10 05:20 | NUR ---
PATIENT SLEPT ON AND OFF THROUGHOUT THE NIGHT. SCHEDULED NEBS PER ORDER. REGULAR DIET. PATIENT REFUSED SCDs. HARD OF HEARING. 5L VIA NC. IS. SOB WITH EXERTION. SALINE LOCKED. SBA.
--- NOTE | 2018-08-10 06:40 | NUR ---
ROUNDED ON PATIENT TO ADMINISTER MEDICATION PER AUG ORDER. FRESH COFFEE BROUGHT TO PATIENT PER PATIENT REQUEST. CALL LIGHT WITHIN REACH. NO MORE NEEDS AT THIS TIME.
--- NOTE | 2018-08-10 07:10 | NUR ---
Rec'd bedside report. Pt. sitting up on bed visiting with family. O2 at 6L, NC, somewhat labored that increases with activity. NO issuesw reoported by Ot. or family atthis time. Call light within reach.
--- NOTE | 2018-08-10 07:20 | NUR ---
BEDSIDE HANDOFF REPORT RECEIVED FROM EGG PASTEURIZER RN. PT SITTING ON EDGE OF BED, SON AT BEDSIDE. PT DENIES NEEDS AT THIS TIME.
--- NOTE | 2018-08-10 08:30 | NUR ---
Pt. sitting in chair watching tv. Vital signs completed for med administration. Pt. tolerated well with no issues reported. Call light within reach.
--- NOTE | 2018-08-10 08:45 | NUR ---
PT SITTING IN CHAIR. PT ON 5L NC, LUNG SOUNDS DIM WITH CRACKLES TO RLL. PT STATES BREATHING IS SLIGHTLY IMPROVED FROM YESTERDAY, ABLE TO COMPLETED ADLS WITH LESS SOB AND FEWER BREAKS, PT DENIES PRODUCTIVE COUGH TODAY. PT TOLERATING REGULAR DIET. PT WITH EDEMA TO BLE, 1+ RIGHT 2+ LEFT, PULSES PALPABLE, DENIES NUMBNESS/TINGLING. PT SALINE LOCKED. VOIDIN QS, HAD SMALL BM THIS AM. PT DENIES OTHER NEEDS AT THIS TIME.
--- NOTE | 2018-08-10 09:00 | NUR ---
Pt. sitting in chair watching TV. Pt. able to take oral meds idependently without difficulty. IV flushed, patent, site benign. Pt. reports no issues at this time. Call light within reach.
--- NOTE | 2018-08-10 10:00 | NUR ---
Pt. lying in bed watching TV. Completed head to toe assessment. NO issues reported at this time. Call light within reach.
--- NOTE | 2018-08-10 12:50 | NUR ---
Pt. sitting up on bed. Pt. stated he ate his lunch and was ok. Pt. had no concerns at this time.Call light within reach.
--- NOTE | 2018-08-10 13:09 | NUR ---
PT UP AMBULATING IN HALLS WITH ALECIA FROM P.T. APPEARS TO HAVE A GOOD HEAD OF STEAM UP. GAVE ENCOURAGEMENT, WILL FOLLOW NEEDED
--- NOTE | 2018-08-10 13:30 | NUR ---
Pt. sitting up in bed. Pt. up independentlyto the bathroom without difficulty.Pt. had no concerns at this time. Call light within reach.
--- NOTE | 2018-08-10 14:10 | NUR ---
Pt. lying in bed with nurse at bedside.Pt. remains on O2 @ 5L per NC, O2SATS 98%, Pt. tolerating ambulation and activity without noticable increase in work of breathing.NO issues reported at this time. Call light within reach.
--- NOTE | 2018-08-10 14:30 | NUR ---
PT RESTING IN BED. PT LUNG SOUNDS DIM WITH EXPIRATORY WHEEZE TO RLL. NO ACUTE CHANGES. PT DENIES NEEDS AT THIS TIME.
--- NOTE | 2018-08-10 17:38 | NUR ---
PATIENT SITTING IN CHAIR. RN IN ROOM. FRESH WATER GIVEN. CALL LIGHT IN REACH. NO FURTHER NEEDS AT THIS TIME.
--- NOTE | 2018-08-10 17:40 | NUR ---
PT SITTING IN CHAIR. PT DENIES NEEDS AT THIS TIME.
--- NOTE | 2018-08-10 18:05 | NUR ---
PT ON 5L NC, LUNG SOUNDS DIM WITH EXPIRATORY WHEEZE, BREATHING AND ACTIVITY TOLERANCE HAS IMPROVD TODAY. PT SALINE LOCKED, IV SOLUMEDROL DECREASED TO ONCE DAILY. EDEMA TO BLE 1+ IN RLE, 2+ IN LLE. PT TOLERATING REGUALR DIET, GOOD ORAL INTAKE. PT VOIDING QS. PLAN FOR DC IN 1-2 DAYS.
--- NOTE | 2018-08-10 19:25 | NUR ---
RECIEVED CHANGE OF SHIFT REPORT FROM SAMMY AMEZQUITA. PATIENT SITTING AWAKE UP IN CHAIR. 5L VIA NC. WHITE BOARD UPDATED. POSSESSIONS AT BEDSIDE. CALL LIGHT WITHIN REACH. NO SIGNS OF RESPIRATORY DISTRESS.
--- NOTE | 2018-08-10 20:35 | NUR ---
PATIENT IS RESTING IN BED WATCHING TV. PATIENT DENIES ANY COMMENTS, QUESTIONS, OR CONCERNS. NO NEEDS NOTED. CALL LIGHT IN REACH.
--- NOTE | 2018-08-10 21:35 | NUR ---
ASSESSMENT COMPLETE. PATIENT DENIES CHEST PAIN. PATIENT REPORTS THE AMOUNT OF SOB THAT PATIENT IS EXPERIENCING IS WITHIN HIS NORMAL LEVEL THAT HE NORMALLY EXPERIENCES. IV ASSESSED TO BE PATENT, WNL. EXPIRATORY WHEEZE AUSCULATED IN RUL, CALI, AND LLL. NO SIGN OF RESPIRATORY DISTRESS. ACAPELLA AT BEDSIDE. MEDICATIONS ADMINISTERED PER AUG ORDER. PATIENT REPORTS PASSING FLATUS. PATIENT REPORTS "SWELLING IN HANDS IS BETTER NOW". FRESH WATER PROVIDED TO PATIENT. CALL LIGHT WITHIN REACH. NO MORE NEEDS AT THIS TIME.
--- NOTE | 2018-08-11 00:55 | NUR ---
ROUNDED ON PATIENT RESTING ON THEIR RIGHT SIDE WITH EYES CLOSED, RESPIRATORY RATE IS EVEN AND UNLABORED. CALL LIGHT WITHIN REACH.
--- NOTE | 2018-08-11 03:30 | NUR ---
ROUNDED ON PATIENT RESTING IN BED ON RIGHT SIDE, RESPIRATORY RATE IS EVEN AND UNLABORED. CALL LIGHT WITHIN REACH.
--- NOTE | 2018-08-11 04:31 | NUR ---
ROUNDED ON PATIENT RESTING IN BED WITH EYES CLOSED, RESPIRATORY RATE IS EVEN AND UNLABORED. TV ON IN ROOM. CALL LIGHT WITHIN REACH.
--- NOTE | 2018-08-11 05:40 | NUR ---
ASSESSMENT COMPLETE. PATIENT DENIES HAVING PAIN OR CHEST PAIN. IV ASSESSED TO BE PATENT, WNL. PATIENT REPORTS HAVING SOB, BUT PATIENT REPORTS SOB IS STILL WITHIN WHAT IS NORMAL FOR HIM. ACTIVE BT IN RUQ AND RLQ, HYPOACTIVE BT IN LUQ AND RLQ, PATIENT REPORTS PASSING FLATUS. 5L VIA NC. ACAPELLA AT BEDSIDE, PATIENT EXPRESSES USE OF DEVICE. FRESH COFFEE BROUGHT TO PATIENT. CALL LIGHT WITHIN REACH. NO MORE NEEDS AT THIS TIME.
--- NOTE | 2018-08-11 08:40 | NUR ---
PATIENT SITTING UP IN THE CHAIR, R.T. IN THE ROOM GIVING PATIENT HIS NEB TX. HE HAS NO C/O SOB CURRENTLY AND REMAINS ON OXYGEN AT 5L PER NC. PATIENT IS ALERT AND ORIENTED AT THIS TIME.
--- NOTE | 2018-08-11 10:26 | NUR ---
PATIENT IN CHAIR WATCHING TV. FRESH WATER GIVEN. LINENS CHANGED. CALL LIGHT IN REACH. NO FURTHER NEEDS AT THIS TIME.
--- NOTE | 2018-08-11 10:30 | NUR ---
PATIENT REMAINS UP IN THE CHAIR ON OXYGEN AT 5L PER NC. HE DENIES ANY SOB OR PAIN CURRENTLY. STATES THAT HE IS JUST KEEPING UP ON SOME SLEEP.
[2018-08-11] MEDS ORDERED: LEVAQUIN750 MG PO (11:36)
[2018-08-11] MEDS ORDERED: PROCARDIA XL60 MG PO (11:36)
[2018-08-11] MEDS ORDERED: IPRAT-ALBUT 0.5-3 ML INH (11:38)
[2018-08-11] MEDS ORDERED: PREDNISONE20 MG PO (11:40)
--- NOTE | 2018-08-11 12:01 | NUR ---
patient given d/c instructions questions answered and pharmacy called to come given patient their d/c instructions.
--- NOTE | 2018-08-11 12:28 | NUR ---
PATIENT GIVEN D/C INSTRUCTIONS BY THE PHARMACIST, VITALS DONE AND PATIENT WHEELED OUT.
== END 2018-08-11 12:35 | disposition home or self-care (01) | DRG 193 ==
LOC: ED 15:51 → CCU 19:02 → MS 08-07 18:18
PROVIDERS: ADMIT Student in an Organized Health Care Education/Training Program
DX: J15.4 Pneumonia due to other streptococci (principal); J96.21 Acute and chronic respiratory failure with hypoxia; J43.9 Emphysema, unspecified; R00.0 Tachycardia, unspecified; I10 Essential (primary) hypertension; M06.9 Rheumatoid arthritis, unspecified; I73.1 Thromboangiitis obliterans [Buerger's disease]; Z85.118 Personal history of other malignant neoplasm of bronchus and lung; Z99.81 Dependence on supplemental oxygen; Z87.891 Personal history of nicotine dependence; Z88.0 Allergy status to penicillin; Z66 Do not resuscitate; Z79.1 Long term (current) use of non-steroidal anti-inflammatories (NSAID); Z79.82 Long term (current) use of aspirin; Z79.51 Long term (current) use of inhaled steroids; Z79.899 Other long term (current) drug therapy
CPT/HCPCS: 36415; 71045; 80048; 80053; 83605; 83735; 83880; 84484; 85025; 85379; 87040; 87070; 87205; 87502; 94640; 94668; 94799; 96365; 96375; 96376; 97110; 97116; 97163; 97165; 99285-25; J0456; J0696; J1650; J1815; J2270; J2930; J7120

== ENCOUNTER 2018-09-15 03:03 | Observation (INO) | payer OTHER ==
[~2018-09-15] VITALS: Ht 170.2 cm; Wt 97.2 kg
--- OUTSIDE RECORDS SUMMARY | ~2018-09-15 | XMS | Clinical Summary ---
Demographics + + + | Address | [address] | | | [place] [address] | + + + | Home Phone | | + + + | Preferred Language | Unknown | + + + | Marital Status | Single | + + + | Mormon Affiliation | 1028 | + + + | Race | Unknown | + + + | Ethnic Group | Unknown | + + + Author + + + | Author | [facility] | | | and [place] | + + + | Organization | [facility] | | | and [place] | + + + | Address | Unknown | + + + | Phone | Unavailable | + + + Support + + +---------+ + | Name | Relationship | Address | Phone | + + +---------+ + | ELLI INGRAM | ECON | Unknown | | + + +---------+ + Care Team Providers + +------+ + | Care Insole Taper Name | Role | Phone | + +------+ + PP | Unavailable | + +------+ + Allergies Not on File Current Medications Not on file Active Problems Not on file Social History + +-------+ +--------+------+ | Tobacco Use | Types | Packs/Day | Years | Date | | | | | Used | | + +-------+ +--------+------+ | Never Assessed | | | | | + +-------+ +--------+------+ + + + | Sex Assigned at | Date Recorded | | | | + + + | Not on file | | + + + Plan of Treatment + + + + + | Health Maintenance | Due Date | Last Done | Comments | + + + + + | Vaccine: | | | | | Dtap/Tdap/Td (1 - | 3 | | | | Tdap) | | | | + + + + + | Vaccine: Zoster (1 | | | | | of 2) | 4 | | | + + + + + | Vaccine: Influenza | | | | | (#1) | 8 | | | + + + + + Results Not on filefrom Last 3 Months"
--- OUTSIDE RECORDS SUMMARY | ~2018-09-15 | XMS | Clinical Summary ---
Demographics + + + | Address | [address] | | | [place] [address] | + + + | Home Phone | | + + + | Preferred Language | Unknown | + + + | Marital Status | Single | + + + | Mandaeism Affiliation | 1028 | + + + | Race | Unknown | + + + | Ethnic Group | Unknown | + + + Author + + + | Author | [facility] | | | and [place] | + + + | Organization | [facility] | | | and [...] Team Providers + +------+ + | Care Drop Clipper Name | Role | Phone | + [...]
--- OUTSIDE RECORDS SUMMARY | ~2018-09-15 | XMS | Clinical Summary ---
Demographics + + + | Address | [address] | | | [place] [address] | + + + | Home Phone | | + + + | Preferred Language | Unknown | + + + | Marital Status | Single | + + + | Congregation Affiliation | 1028 | + + + | Race | Unknown | + + + | Ethnic Group | Unknown | + + + Author + + + | Author | [facility] | | | and [place] | + + + | Organization | [facility] | | | and [place] [...] Team Providers + +------+ + | Care Solution Design And Analysis Manager Name | Role | Phone | + [...]
--- OUTSIDE RECORDS SUMMARY | ~2018-09-15 | XMS | Clinical Summary ---
Demographics + + + | Address | [address] | | | [place] [address] | + + + | Home Phone | | + + + | Preferred Language | Unknown | + + + | Marital Status | Single | + + + | Baptism Affiliation | Unknown | + + + | Race | Unknown | + + + | Ethnic Group | Unknown | + + + Author + + + | Author | [facility] | + + + | Organization | [facility] | + + + [...] Team Providers + +------+ + | Care Eeg Tech Name | Role | Phone | + [...] | | | Activ | | (DRISDOL) [id number] | mouth once a week. | | [...] | + + + +---------+------+------+-------+ | nystatin [id number] | Swish and swallow 5 | 240 [...] Noted Date | + + + | Dlbrz-lj-kbcouiq respiratory failure (HCC) | 04/07/2018 | + [...] | 2018 | /REAP1 | | Liu Mocnada MD | access | Wall | INC [...] +------+-------+---------+ | [employer] | FC-NET | [phone] | | | | | | WORK [...] | Self | [birth year] | Home: | [address] | | | al/Fam | | [phone] | [phone] | [place] [address] | | | concepción | | | [phone] | | + +--------+ +--------+ + +
--- OUTSIDE RECORDS SUMMARY | ~2018-09-15 | XMS | Clinical Summary ---
Demographics + + + | Address | [address] | | | [place] [address] | + + + | Home Phone | | + + + | Preferred Language | Unknown | + + + | Marital Status | Single | + + + | Mormonism Affiliation | Unknown | + + + | Race | Unknown | + + + | Ethnic Group | Unknown | + + + Author + + + | Author | [facility] | + + + | Organization | [facility] | + + + | [...] Team Providers + +------+ + | Care Wastewater Treatment Plant Attendant Name | Role | Phone | + [...] | | | Activ | | (DRISDOL) [id number] | mouth once a week. | | [...] | + + + +---------+------+------+-------+ | nystatin [id number] | Swish and swallow 5 | 240 [...] Noted Date | + + + | Iluer-zt-ktchuib respiratory failure (HCC) | 04/07/2018 | + [...] +------+-------+---------+ | [employer] | FC-NET | [phone] | | | | | | WORK [...] | Self | [birth year] | Home: | [address] | | | al/Fam | | [phone] | [phone] | [place] [address] | | | concepción | | | [phone] | | + +--------+ +--------+ + +
--- OUTSIDE RECORDS SUMMARY | ~2018-09-15 | XMS | Clinical Summary ---
Demographics + + + | Address | [address] | | | [place] [address] | + + + | Home Phone | | + + + | Preferred Language | Unknown | + + + | Marital Status | Single | + + + | Yarsani Affiliation | Unknown | + + + | Race | Unknown | + + + | Ethnic Group | Unknown | + + + Author + + + | Author | [facility] | + + + | Organization | [facility] | + + + | [...] Team Providers + +------+ + | Care Brake Drum Molder Name | Role | Phone | + [...] | | | Activ | | (DRISDOL) [id number] | mouth once a week. | | [...] | + + + +---------+------+------+-------+ | nystatin [id number] | Swish and swallow 5 | 240 [...] Noted Date | + + + | Zrigu-cj-pfhuhee respiratory failure (HCC) | 04/07/2018 | + [...] +------+-------+---------+ | [employer] | FC-NET | [phone] | | | | | | WORK [...] | Self | [birth year] | Home: | [address] | | | al/Fam | | [phone] | [phone] | [place] [address] | | | concepción | | | [phone] | | + +--------+ +--------+ + +
[~2018-09-15 03:03] MED LIST changes: +IPRAT-ALBUT 0.5-3 ML INH; +OXYBUTYNIN CHLO10 MG PO; +PREDNISONE20 MG PO
[2018-09-15] MEDS ORDERED: ZITHROMAX250 MG PO ×2 (04:37)
[2018-09-15] MEDS ORDERED: MORPHINE S100 MG/5 M PO ×2 (04:41)
--- NOTE | 2018-09-15 07:56 | EKG ---
[facility] [address] [place] [address] Signed Poor data quality, interpretation may be adversely affected Sinus tachycardia Otherwise normal ECG When compared with ECG of 27-JUN-2017 17:11, No significant change was found Confirmed by MARTHA ANDERSON MD ([id number]) on 09/15/2018 7:56:10 AM Electronically Signed By: MARTHA ANDERSON MD 09/15/18 0756 PATIENT NAME: LUIZ HARVEY Electrocardiogram DATE OF : 53 PHYSICIAN: MARTHA ANDERSON MD REPORT #: [id number] REPORT IS CONFIDENTIAL AND NOT TO BE RELEASED WITHOUT AUTHORIZATION
--- NOTE | 2018-09-15 09:05 | NUR ---
PT DOES NOT WANT TO EAT BKF AT THIS TIME. FRESH COFFEE GIVEN AT THIS TIME.
--- NOTE | 2018-09-15 10:05 | NUR ---
pt sitting up at the side of the bed talking with son and on the phone. Started PO abx per new orders. Pt has been transfered to the M/S unit at this time.
--- NOTE | 2018-09-15 12:58 | NUR ---
Report called to Jennifer at this time, all questions answered at this time. pt transfered via the chair to room 122 with all personal belongings.
--- NOTE | 2018-09-15 16:32 | NUR ---
TRANSFER FROM CCU AT 1300. 6L O2 VIA NC-- BASELINE. USES URINAL. INDEPENDENT IN ROOM. LEVAQUIN PO. NS @ 125 IN LFA. S/L IN RAC. SKIN GRAFTS TO LOWER BODY FROM HX ZACARIAS. HIVES IN AXILLA BILATERALLY FROM MEDICATION TAKEN PRIOR TO ADMISSION. NEBS Q4. TACHYCARDIA. DNR/DNI.
--- NOTE | 2018-09-15 17:12 | NUR ---
MED REC COMPLETE
--- NOTE | 2018-09-15 19:52 | NUR ---
REPORT RECEIVED, PT RESTING IN BED, ON 6LNC, NO C/O SOB/CP WITH PT SITTING UP AT BEDSIDE, PT STATES HIS SOB EXACERBATES WITH ACTIVITY BUT DENIES ANY AT THIS TIME, FAMILY AT BEDSIDE, NO REQUESTS AT THIS TIME, PT AOX4, CALL LIGHT WITHIN REACH, FALL PRECAUTIONS IN PLACE.
--- NOTE | 2018-09-15 20:25 | NUR ---
CHARGE NURSE ROUNDING NOTE: IN BED, O2 6L/NC CHRONIC. NO C/O RESP DISTRESS. WATCHING TV, IN BED, FRESH WATER AND CALL LIGHT AT BEDSIDE
--- NOTE | 2018-09-15 20:52 | NUR ---
IN ROOM TO ADMIN EVENING MEDS, ASSESSMENT COMPLETE, PT AOX4, ON 6LNC, O2 SAT 97%, NO C/O SOB/CP, PT RESTING IN BED, NO C/O PAIN, NO REQUESTS AT THIS TIME, PT'S LS DIMINISHED, PRODUCTIVE OCCASIONAL COUGH NOTED, IV SL, BOTH FLUSH WELL, NO REQUESTS AT THIS TIME, CALL LIGHT WITHIN REACH. FALL PRECAUTIONS IN PLACE.
--- NOTE | 2018-09-15 23:40 | NUR ---
PT RESTING IN BED, EYES CLOSED, ON 6LNC, BREATHS EVEN, UNLABORED, NO REQUESTS AT THIS TIME, CALL LIGHT WITHIN REACH.
--- NOTE | 2018-09-16 02:00 | NUR ---
PT RESTING IN BED, ON 6LNC, NO SIGNS OF DISTRESS, NO C/O SOB/CP, PT DENIES ANYH NEEDS AT THIS TIME, CALL LIGHT WITHIN REACH. FALL PRECAUTIONS IN PLACE. IV FLUIDS INFUSING PER EMAR WNL.
--- NOTE | 2018-09-16 04:32 | NUR ---
PT RESTING IN BED, NO REQUESTS AT THIS TIME, ON 6LNC, NO C/O SOB/CP, CALL LIGHT WITHIN REACH. FALL PRECAUTIONS IN PLACE.
--- NOTE | 2018-09-16 04:58 | NUR ---
PT AOX4 THIS SHIFT, APPROPRIATE, ON 6LNC, NO C/O SIGNIFICANT SOB/CP, PT REMAINS TO HAVE SOME SOB WITH EXERTION BUT HAS NOT BEEN ACTIVE MUCH THIS NIGHT, IV SL, 1 PERSON SBA DUE TO EXERTIONAL DYSPNEA, SCHEDULED NEBS ADMINISTERED PER EMAR, VSS, CALLS APPROPRIATELY.
--- NOTE | 2018-09-16 07:00 | NUR ---
BEDSIDE HANDOFF REPORT RECEIVED FROM TESTING ENGINEER RN. PT SITTING ON EDGE OF BED. PT COMPLAINT OF FEELING MORE SOB THIS MORNING, REQUESTING NEB, GAS FITTER APPRENTICE CALLED.
--- NOTE | 2018-09-16 07:29 | NUR ---
GOT PATIENT WARM WASH CLOTH TO WASH HIS FACE ALSO A SHAMPOO CAP AND HELPED HIM WASH HIS HAIR. ALSO WARM BATH WIPES AND WASHED HIS BACK. ALSO A CLEAN GOWN. I WILL CHECK BACK AND SEE IF HE NEEDS MORE HELP.
--- NOTE | 2018-09-16 08:10 | NUR ---
PT SITTING ON EDGE OF BED. PT CONTINUES TO COMPLAIN OF SOB, NEB DID NOT HELP YET, O2 SATS 94% ON 6L NC, RR 32. PT WITH SMALL APPETITE UNABLE TO EAT DUE TO SOB. LUNG SOUNDS DIM WITH EXPIRATORY WHEEZE. IV SALINE LOCKED, FLUSHED, PATENT. PT WIHTOUT EDEMA, CMS INTACT. BOWEL TONES ACTIVE, DENIES NAUSEA. VOIDING QS. DISCUSSED SOB WITH PT, PT AGREEABLE TO MORPHINE, 2.5 MG GIVEN, SECOND RN CHECK WITH DEMARCUS. PT INSTRUCTED TO CALL IF SOB WORSENS OR DOES NOT IMPROVE. DISCUSSED LIMITED ACTIVITY THIS AM UNTIL SOB IMPROVES. PT DENIES OTHER NEEDS AT THIS TIME.
--- NOTE | 2018-09-16 09:22 | NUR ---
PATIENT SITTING UP IN CHAIR WATCHING TV. VITAL SIGNS AND I&O DONE. CALL LIGHT WITHIN REACH. NO OTHER NEEDS AT THIS TIME
--- NOTE | 2018-09-16 09:45 | NUR ---
PT CALLED FOR INCREASED SOB, REQUESTING ATIVAN. DISCUSSED WITH DR. ANDERSON, NEW ORDER FOR ATIVAN AND INCREASED DOSE OF MORPHINE. PT CALLED SON, REQUESTING DR. GARCIA TO ROUND WHEN SON ARRIVES, COMMUNICATED WITH DR. ANDERSON.
--- NOTE | 2018-09-16 10:00 | NUR ---
SPOKE WITH PATIENT AND FAMILY IN ROOM. PATIENT IS AWAKE, IS USING MODELING TEACHER FOR SOB AND PAIN. DISCUSSED THAT PATIENT IS OBSERVATION STATUS AND DISCUSSED WITH PATIENT WHAT HIS WISHES ARE FOR DISCHARGE. PATIENT IS ORIENTED AND STATES QUIT CLEARLY THAT "MY KIDS ARE COMING, FOUR ARE HERE IN THIS ROOM, THEY UNDERSTAND I DO NOT WANT TO CONTINUE THIS FIGHT". PATIENT STATES "I WANT TO BE ABLE TO REMOVE THE OXYGEN BUT I WANT TO NOT BE IN PAIN AND FEEL ANXIOUS WHEN I CAN'T BREATHE". PATIENT IS ASKING FOR HOSPICE, BUT IS RELUCTANT TO GO HOME AT THIS POINT. PT IS REQUESTING TO BE MEDICATED TO COMFORT AT THIS POINT. STATES HE DOESN'T THINK HE IS CAPABLE OF BEING HOME AT THIS TIME DUE TO EXTREME SOB. HE IS NOT INTERESTED IN GOING TO A FACILITY AT THIS TIME, EITHER. PATIENT STATES "KIRSTEN LIVED A GOOD LIFE, I HAVE MADE MY PEACE, I JUST DON'T WANT TO SUFFER ANY MORE". OFFERED PASTORAL CARE, PATIENT DECLINES AT THIS TIME. DISCUSSED WE WILL TRY AND GET HIS SYMPTOMS CONTROLLED AND RESPECT HIS WISHES. NO FURTHER QUESTIONS AT THIS TIME.
--- NOTE | 2018-09-16 10:39 | NUR ---
MORPHINE FOOD SCIENCE TECHNICIAN/GGT STARTED PER ORDER. PT INSTRUCTED ON FOOD SCIENCE TECHNICIAN USE. PER PT REQUEST SISTER TRACE CALLED AND UPDATED ON TREATMENT PLAN. PT RESTING IN BED, FAMILY AT BEDSIDE.
--- NOTE | 2018-09-16 11:30 | NUR ---
PT RESTINGINBED. PT STATES MORPHINE GGT IS EFFECTIVE, HAS NOT REQUIRED A PROJECT MANAGER/TEAM COACH DOSE. PT DENIES OTHER NEEDS AT THIS TIME.
--- NOTE | 2018-09-16 12:45 | NUR ---
FAMILY REQUESTING O2 SATS TO BE CHECKED, 91% ON 6L. PT SLEEPING, APPEARS COMFORTABLE. FAMILY CONCERNED THAT PT HAS BEEN SLEEPING AND IS NOT AROUSABLE, PT WOKE UP WIHTOUT STIMULATION AND BEGAN CONVERSING WITH FAMILY. FAMILY DENIES OTHER NEEDS AT THIS TIME.
--- NOTE | 2018-09-16 13:30 | NUR ---
SPOKE WITH PATIENT AND FAMILY REGARDING REQUEST TO [facility] FOR SWING BED STATUS FOR SYMPTOM CONTROL OF DYSPNEA AND PAIN. DISCUSSED STATUS MEANING AND THAT [place] HAS AGREED TO 5 DAY LOS WITH POSSIBILITY OF HOSPICE CARE TO BE ARRANGED WHEN NEEDED FOR DISCHARGE. PATIENT WAS SLEEPING MOSTLY, BUT AWAKENED AT END OF CONVERSATION, VERY DROWSY FROM MORPHINE USE. PATIENT DOES SEEM TO UNDERSTAND AND IS GRATEFUL THE MORPHINE IS HELPING HIS SOB. DISCUSSED WITH ALL THAT WEDNESDAY WE WILL LOOK AT POSSIBLE OPTIONS FOR HOSPICE CARE AT HOME OR FACILITIES.
--- NOTE | 2018-09-16 14:48 | NUR ---
PT DSICAHRGED TO SWING BED.
== END 2018-09-16 13:45 | disposition swing bed (61) ==
LOC: ED 03:03 → CCU 03:04 → MS 12:55
PROVIDERS: ADMIT Internal Medicine
DX: J43.9 Emphysema, unspecified (principal); M06.9 Rheumatoid arthritis, unspecified; I10 Essential (primary) hypertension; I73.9 Peripheral vascular disease, unspecified; J96.11 Chronic respiratory failure with hypoxia; Z85.118 Personal history of other malignant neoplasm of bronchus and lung; Z99.81 Dependence on supplemental oxygen; Z66 Do not resuscitate; Z87.891 Personal history of nicotine dependence; Z88.0 Allergy status to penicillin; Z57.4 Occupational exposure to toxic agents in agriculture; Z79.82 Long term (current) use of aspirin; Z79.891 Long term (current) use of opiate analgesic; Z79.51 Long term (current) use of inhaled steroids; Z79.52 Long term (current) use of systemic steroids; Z79.899 Other long term (current) drug therapy
CPT/HCPCS: 71045; 80053; 81001; 83605; 85025; 87502; 93005; 93010; 94640; 94644; 94645; 94667; 94668; 96374; 96375; 96376; 99285-25; G0378; J0456; J0696; J2060; J2270; J2930; J7030

== ENCOUNTER 2018-09-16 13:45 | Inpatient (IN) | payer OTHER ==
[~2018-09-16] VITALS: Ht 170.2 cm; Wt 97.1 kg
--- OUTSIDE RECORDS SUMMARY | ~2018-09-16 | XMS | Clinical Summary ---
Demographics + + + | Address | [address] | | | [place] [address] | + + + | Home Phone | | + + + | Preferred Language | Unknown | + + + | Marital Status | Single | + + + | Hindu Affiliation | Unknown | + + + | Race | Unknown | + + + | Ethnic Group | Unknown | + + + Author + + + | Author | [facility] | + + + | Organization | [facility] | + + + | Address | Unknown | + + + | Phone | Unavailable | + + + Support + + +---------+ + | Name | Relationship | Address | Phone | + + +---------+ + | Giovanna Gordon | ECON | Unknown | | + + +---------+ + | Rene Bryson | ECON | Unknown | | + + +---------+ + | Parviz Bryson | ECON | Unknown | | + + +---------+ + | Yadira Bryson | ECON | Unknown | | + + +---------+ + Care Team Providers + +------+ + | Care Dredgemaster Name | Role | Phone | + +------+ + | Elver Craven DO | PP | | + +------+ + Allergies + + + + + + | Active Allergy | Reactions | Severity | Noted | Comments | | | | | Date | | + + + + + + | Diphenhydramine | Hallucinations | Medium | 07/18/19 | | | | | | 16 | | + + + + + + | Orphenadrine-Aspirin | Rash | Medium | | | | -Caffeine | | | | | + + + + + + | Penicillin V | Angioedema | High | | | + + + + + + | Penicillins | Swelling | Medium | 07/01/19 | | | | | | 16 | | + + + + + + Current Medications + + + +---------+------+------+-------+ | Prescription | Sig. | Disp. | Refills | Star | End | Statu | | | | | | t | Date | s | | | | | | Date | | | + + + +---------+------+------+-------+ | aspirin 81 MG | Take 81 mg by mouth | | | | | Activ | | tablet | daily. | | | | | e | + + + +---------+------+------+-------+ | cilostazol | Take 100 mg by mouth | | | | | Activ | | (PLETAL) 100 MG | 2 (two) times | | | | | e | | tabletIndications: | daily. Indications: | | | | | | | .5 in the am and .5 | .5 in the am and .5 | | | | | | | pm | pm | | | | | | + + + +---------+------+------+-------+ | albuterol | Inhale 2 puffs into | | | | | Activ | | (PROVENTIL | the lungs every 4 | | | | | e | | HFA;VENTOLIN HFA) | (four) hours as | | | | | | | 108 (90 BASE) | needed for Wheezing. | | | | | | | MCG/ACT inhaler | | | | | | | + + + +---------+------+------+-------+ | ergocalciferol | Take 50,000 Units by | | | | | Activ | | (DRISDOL) [id number] | mouth once a week. | | | | | e | | UNITS capsule | | | | | | | + + + +---------+------+------+-------+ | diclofenac | Take 75 mg by mouth | | | 12/0 | | Activ | | (VOLTAREN) 75 MG EC | 2 (two) times daily. | | | 2/20 | | e | | tablet | | | | 15 | | | + + + +---------+------+------+-------+ | NIFEDICAL XL 60 MG | Take 60 mg by mouth | | | 03/2 | | Activ | | 24 hr tablet | 2 (two) times daily. | | | 1/20 | | e | | | | | | 16 | | | + + + +---------+------+------+-------+ | docusate sodium | Take 100 mg by mouth | | | | | Activ | | (COLACE) 100 MG | daily. | | | | | e | | capsule | | | | | | | + + + +---------+------+------+-------+ | | Apply topically as | 30 g | 0 | 08/1 | | Activ | | lidocaine-prilocaine | needed. Over port | | | 2/20 | | e | | (EMLA) cream | site one hour prior | | | 16 | | | | | to having | | | | | | | | Chemotherapy. Cover | | | | | | | | with plastic wrap | | | | | | + + + +---------+------+------+-------+ | nystatin [id number] | Swish and swallow 5 | 240 mL | 0 | 09/0 | | Activ | | UNIT/ML SUSP | mLs 4 (four) times | | | 6/20 | | e | | 3,000,000 Units, | daily. swish, | | | 16 | | | | hydrocortisone | gargle, and swallow | | | | | | | sodium succinate 100 | | | | | | | | MG SOLR 60 mg, | | | | | | | | diphenhydrAMINE 12.5 | | | | | | | | MG/5ML LIQD 525 mg | | | | | | | + + + +---------+------+------+-------+ | hydrocortisone, | | | | 09/1 | | Activ | | bulk, (HYDRO-RX) | | | | 2/20 | | e | | POWD | | | | 16 | | | + + + +---------+------+------+-------+ | ondansetron | | | | 09/2 | | Activ | | (ZOFRAN) 8 MG tablet | | | | 9/20 | | e | | | | | | 16 | | | + + + +---------+------+------+-------+ | prochlorperazine | | | | 08/3 | | Activ | | (COMPAZINE) 10 MG | | | | 1/20 | | e | | tablet | | | | 16 | | | + + + +---------+------+------+-------+ | loratadine | Take 10 mg by mouth | | | | | Activ | | (CLARITIN) 10 MG | daily. | | | | | e | | tablet | | | | | | | + + + +---------+------+------+-------+ | barium (READI-CAT) | Take barium oral | 900 mL | 0 | 05/3 | | Activ | | 2.1 % SUSP | prep per included | | | 0/20 | | e | | | written | | | 17 | | | | | instructions. | | | | | | + + + +---------+------+------+-------+ | nitroGLYCERIN | Place 1 tablet under | 90 | 12 | 05/0 | 05/0 | Activ | | (NITROSTAT) 0.4 MG | the tongue every 5 | tablet | | 4/20 | 4/20 | e | | SL tablet | (five) minutes as | | | 18 | 19 | | | | needed for Chest | | | | | | | | pain. | | | | | | + + + +---------+------+------+-------+ | FREE TEXT | Oxygen increased to | 1 Act | 0 | 05/0 | | Activ | | PRESCRIPTION, PRINT | 6l/min on exertion | | | 8/20 | | e | | ONLY,Indications: | | | | 18 | | | | Hypoxia | | | | | | | + + + +---------+------+------+-------+ | umeclidinium | Incruse Ellipta 62.5 | | | | | Activ | | bromide (INCRUSE | mcg/actuation | | | | | e | | ELLIPTA) 62.5 | powder for | | | | | | | MCG/INH inhaler | inhalation | | | | | | + + + +---------+------+------+-------+ | Fluticasone | Inhale 1 puff into | 60 each | 11 | 07/0 | | Activ | | Furoate-Vilanterol | the lungs daily. | | | 20 | | e | | (BREO ELLIPTA) | | | | 18 | | | | 200-25 MCG/INH AEPB | | | | | | | + + + +---------+------+------+-------+ | azithromycin | azithromycin 250 mg | | | | | Activ | | (ZITHROMAX) 250 MG | tablet | | | | | e | | tablet | | | | | | | + + + +---------+------+------+-------+ | oxybutynin | oxybutynin chloride | | | | | Activ | | (DITROPAN-XL) 5 MG | ER 5 mg | | | | | e | | 24 hr tablet | tablet,extended | | | | | | | | release 24 hr | | | | | | + + + +---------+------+------+-------+ | azithromycin | | | | 10/0 | | Activ | | (ZITHROMAX) 250 MG | | | | 2/20 | | e | | tablet | | | | 18 | | | + + + +---------+------+------+-------+ + + +-------+ +------+------+-------+ | Hospital, Clinic, or | Ordered | Route | Frequency | Star | End | Statu | | Other Facility | Dose | | | t | Date | s | | Administered | | | | Date | | | | Medication | | | | | | | + + +-------+ +------+------+-------+ | heparin flush (PF) | 500 Units | IK | PRN | 08/1 | | Activ | | 100 unit/mL | | | | 7/20 | | e | | injection 500 | | | | 16 | | | | UnitsIndications: | | | | | | | | Squamous cell | | | | | | | | carcinoma of right | | | | | | | | lung (HCC) | | | | | | | + + +-------+ +------+------+-------+ | sodium chloride | 10 mL | IV | PRN | 08/1 | | Activ | | 0.9 % flush 10 | | | | 7/20 | | e | | mLIndications: | | | | 16 | | | | Squamous cell | | | | | | | | carcinoma of right | | | | | | | | lung (HCC) | | | | | | | + + +-------+ +------+------+-------+ Active Problems + + + | Problem | Noted Date | + + + | Deuam-fk-xkkeqhf respiratory failure (HCC) | 04/07/2018 | + + + | Chronic diastolic heart failure (HCC) | 12/23/2017 | + + + | Squamous cell carcinoma of right lung (HCC) | 11/22/2015 | + + + | Pulmonary emphysema (HCC) | 08/09/2015 | + + + | Severe protein-calorie malnutrition (HCC) | 07/02/2015 | + + + | 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 | + + + | Rheumatoid arthritis (HCC) | 07/01/2015 | + + + Resolved Problems + + + + | Problem | Noted | Resolved | | | Date | Date | + + + + | Empyema (HCC) | 08/09/19 | | | | 16 | 8 | + + + + | Loculated pleural effusion | 07/01/19 | | | | 16 | 6 | + + + + | Acute respiratory failure with hypoxia (HCC) | 07/01/19 | | | | 16 | 6 | + + + + | Pneumonia | 07/01/19 | | | | 16 | 8 | + + + + Immunizations + + + + | Name | Dates Previously Given | Next Due | + + + + | INFLUENZA PF, | 03/22/2018 | | | QUADRIVALENT | | | | (PED/ADOL/ADULT) | | | + + + + | INFLUENZA W/PRESERV | 04/13/2017 | | | QUADRIVALENT | | | | (MULTIDOSE) | | | + + + + | Influenza, PF | 04/24/2014 | | | Trivalent | | | + + + + | Influenza, Trivalent | 01/14/2016, 04/23/2015, 04/04/2013, | | | W/Preservative | 07/12/2012, 03/10/2011, 04/07/2010, | | | | 03/21/2009, 03/21/2008, 04/27/2006 | | + + + + | Pneumococcal | 04/23/2017, 03/10/2011, 03/21/2008 | | | Conjugate 13-valent | | | + + + + | Pneumococcal | 03/30/2018, 01/14/2016 | | | Polysaccharide | | | | 23-valent | | | + + + + | Tdap | 01/27/2017 | | + + + + Family History + + +------+ + | Medical History | Relation | Name | Comments | + + +------+ + | Cancer | Father | | | + + +------+ + | Cancer | Maternal | | | | | Grandfath | | | | | er | | | + + +------+ + | Cancer | Maternal | | | | | Grandmoth | | | | | er | | | + + +------+ + | COPD | Mother | | | + + +------+ + | Lung cancer | Mother | | | + + +------+ + | Lung cancer | Sister | | passed in 2009 | + + +------+ + | Malig hypertherm | Neg Hx | | | + + +------+ + + +------+--------+ + | Relation | Name | Status | Comments | + +------+--------+ + | Father | | | | + +------+--------+ + | Maternal Grandfather | | | | + +------+--------+ + | Maternal Grandmother | | | | + +------+--------+ + | Mother | | | | + +------+--------+ + | Sister | | | | + +------+--------+ + Social History + +-------+ +--------+ + | Tobacco Use | Types | Packs/Day | Years | Date | | | | | Used | | + +-------+ +--------+ + | Former Smoker | | 2 | 39 | Quit: 10/29/2009 | + +-------+ +--------+ + + +---+---+ + | Smokeless Tobacco: | | | Quit: | | Former User | | | 10/30/19 | | | | | 00 | + +---+---+ + + + | Comments: used to smoke 2PPD x 40 years but quit 2009 | + + + + +---------+ + | Alcohol Use | Drinks/We | oz/Week | Comments | | | ek | | | + + +---------+ + | No | 0 | 0.0 | | | | Standard | | | | | drinks or | | | | | | | | | | equivalen | | | | | t | | | + + +---------+ + + + + | Sex Assigned at | Date Recorded | | | | + + + | Not on file | | + + + Last Filed Vital Signs + + + + | Vital Sign | Reading | Time Taken | + + + + | Blood Pressure | 150/90 | 04/05/2018 3:47 PM PDT | + + + + | Pulse | 90 | 04/05/2018 3:47 PM PDT | + + + + | Temperature | 35.7 C (96.2 F) | 04/05/2018 3:47 PM PDT | + + + + | Respiratory Rate | 16 | 04/05/2018 3:47 PM PDT | + + + + | Oxygen Saturation | 97% | 04/05/2018 3:47 PM PDT | + + + + | Inhaled Oxygen | - | - | | Concentration | | | + + + + | Weight | 95.8 kg (211 lb 1.9 | 04/05/2018 3:47 PM PDT | | | oz) | | + + + + | Height | 170.2 cm (5' 7") | 04/05/2018 3:47 PM PDT | + + + + | Body Mass Index | 33.07 | 04/05/2018 3:47 PM PDT | + + + + Plan of Treatment + + + + + | Health Maintenance | Due Date | Last Done | Comments | + + + + + | Colon Cancer | | | | | Screening | 4 | | | | (Colonoscopy) | | | | + + + + + | Vaccine: Zoster (1 | | | | | of 2) | 4 | | | + + + + + | Vaccine: | | 01/27/2017 | | | Dtap/Tdap/Td (2 - | 7 | | | | Td) | | | | + + + + + | Vaccine: Influenza | Completed | 03/22/2018, 04/13/2017, | | | | | 01/14/2016, Additional history | | | | | exists | | + + + + + | Vaccine: | Completed | 03/30/2018, 04/23/2017, | | | Pneumococcal 19-64 | | 01/14/2016, Additional history | | | Highest Risk | | exists | | + + + + + Implants + +--------+--------+ +--------+--------+--------+ | Explanted | Type | Area | Manufacture | Device | Expira | Model | | | | | r | | tion | / | | | | | | Identi | Date | Serial | | | | | | fier | | / Lot | + +--------+--------+ +--------+--------+--------+ | [employer] [address]-01/27/2016Implanted: | Vascul | Left: | BARD ACCESS | | 07/18/ | / | | Qty: 1 on 01/27/2016 by | ar | Chest | SYSTEMS | | 2018 | /REAP1 | | Liu Moncada MD | access | Wall | INC | | | [phone] | | PhDExplanted: Qty: 1 on | | | | | | | | 06/01/2016 by Liu Moncada, | device | | | | | | | PhD | | | | | | | + +--------+--------+ +--------+--------+--------+ Results Not on filefrom Last 3 Months Insurance + +--------+ +------+-------+---------+ | Payer | Benefi | Subscriber | Type | Phone | Address | | | t Plan | ID | | | | | | / | | | | | | | Group | | | | | + +--------+ +------+-------+---------+ | [employer] | FC-NET | [id number] | | | | | | WORK | | | | | + +--------+ +------+-------+---------+ + +--------+ +--------+ + + | Guarantor Name | Accoun | Relation to | Date | Phone | Billing Address | | | t Type | Patient | of | | | | | | | | | | + +--------+ +--------+ + + | LUIZ BRYSON | Person | Self [birth year] Home: | [address] [address] | | | al/Fam | | [phone] | [phone] [place] [address] | | | concepción | | [phone] | | + +--------+ +--------+ + +
--- OUTSIDE RECORDS SUMMARY | ~2018-09-16 | XMS | Clinical Summary ---
Demographics + + + | Address | [address] | | | [place] [address] | + + + | Home Phone | | + + + | Preferred Language | Unknown | + + + | Marital Status | Single | + + + | Restorationism Affiliation | [id number] | + + + | Race | Unknown | + + + | Ethnic Group | Unknown | + + + Author + + + | Author | [facility] | | | and [place] | + + + | Organization | [facility] | | | and [place] [...] Team Providers + +------+ + | Care Poultry And Fish Butcher Name | Role | Phone | + [...]
[~2018-09-16 13:45] MED LIST changes: +MORPHINE S100 MG/5 M PO; +ZITHROMAX250 MG PO
--- NOTE | 2018-09-16 14:44 | NUR ---
PATIENT AND FAMILY WERE UPDATED ON STATUS CHANGE TO SWING BED FOR SYMPTOM CONTROL AFTER APPROVAL FROM HIS INSURANCE [employer]. THEY ARE ALL IN AGREEMENT WITH THIS. PATIENT IS DROWSY FROM MEDICATION USE AT THIS TIME, BUT AWAKENS DURING CONVERSATION. PATIENT DENIES QUESTIONS. DISCUSSED WITH FAMILY THAT WEDNESDAY WE WILL DISCUSS WHAT PLAN WILL BE NEXT FOR DISCHARGE, HOME WITH HOSPICE AND HE WILL NEED 24/7 CAREGIVERS, OR FACILITY CARE IF THEY CHOOSE. THEY ALL AGREE THEY ARE NOT ABLE TO MAKE A DECSION AT THIS TIME AND ARE UNSURE HE WILL TOLERATE EVEN MOVING TO A FACILITY AT THIS POINT. ASSURED THEM WE HAVE 5 DAY APPROVAL FOR STAY BY [place] AND CAN ASK FOR EXTENSION IF NEEDED. ALL AGREE. NO FURTHER QUESTIONS AT THIS TIME.
--- NOTE | 2018-09-16 14:58 | NUR ---
PT ADMITTED TO SWING BED. ADMISSION INTAKE COMPLETED. PT RESTING COMFORTABLY IN BED. FAMILY AT BEDSIDE. MORPHINE LEGAL REFEREE INFUSING.
--- NOTE | 2018-09-16 15:45 | NUR ---
PT RESTING IN BED. RR 18, UNLABORED. FAMILY AT BEDSIDE. FAMILY DENIES NEEDS AT THIS TIME. PT APPEARS COMFORTABLE.
--- NOTE | 2018-09-16 16:48 | NUR ---
PER VERBAL ORDER FROM DR. DELUCA AND FAMILY REQUEST, MORPHINE WIRE TAPER TITRATED DOWN. PT AROUSABLE TO VOICE AND GENTLE SHAKE. PERICARE PERFORMED, ORAL HYGEINE PERFORMED, PT DECLINED TURNING. PT PLACED ON OXYMASK DUE TO MOUTH BREATHING. PT APPEARS COMFORTABLE. PT FAMILY UPDATED ON CHANGES. FAMILY DENIES NEEDS AT THIS TIME.
--- NOTE | 2018-09-16 17:37 | NUR ---
PT TRANSITIONED TO SWING BED FOR COMFORT MEASURES. PT ON 6L OXYMASK, VERBALIZED HE WISHES TO REMAIN ON OXYGEN UNTIL FAMILY HAS ARRIVED. MORPHINE CLEANER GREASER FOR SOB, CONTNINUES INFUSING AT 4 MG/HR, TITRATE FOR OVERSEDATION. ORAL CARE, Q2 TURNS PRN. FAMILY IN ROOM, EDUCATION PROVDIDED.
--- NOTE | 2018-09-16 18:15 | NUR ---
FAMILY IN ROOM. PT APPEARS COMFORTABLE, RR 14. FAMILY DENIES NEEDS AT THIS TIME.
--- NOTE | 2018-09-16 19:26 | NUR ---
REPORT RECEIVED, PT RESTING IN BED, EYES CLOSED, NO SIGNS OF DISTRESS OR DISCOMFORT, MORPHINE HEARING AID ASSISTANT INFUSING PER ORDER, FAMILY PRESENT IN ROOM, NO NEEDS AT THIS TIME, CALL LIGHT WITHIN REACH.
--- NOTE | 2018-09-16 22:06 | NUR ---
IN ROOM TO CHECK WITH PT AND PT'S FAMILY, PT RESTING IN BED, ON 6LNC, PT SNORING, NO SIGNS OF DISTRESS OR DISCOMFORT, PT'S FAMILY REQUESTING TO TITRATE PT'S MORPHINE DOWN TO 3.5MG/HR DUE TO THE PT'S CURRENT SEDATED STATE. PT CURRENTLY IS NOT RESPONSIVE TO VERBAL STIMULI OR GENTLE TOUCH, PT'S MORPHINE DAIRY HELPER TITRATED TO 3.5MG/HR PER PT'S FAMILIES REQUEST, 2 RN VERIFICATION DONE WITH CONTINUOUS RATE DOSAGE CHANGE WITH ALIRIO CASTILLO. NO FURTHER REQUESTS AT THIS TIME, CALL LIGHT WITHIN REACH.
--- NOTE | 2018-09-16 22:50 | NUR ---
DATA MANAGEMENT MANAGER MEDICATION SYRINGE CHANGED, PER EMAR, 2 RN VERIFICATION WITH ALIRIO CASTILLO, PT REMAINS TO APPEAR COMFORTABLE, ON 6LNC, RR 12-14, NO SIGNS OF DISCOMFORT OR RESTLESNESS. FAMILY REMAINS AT BEDSIDE. NO NEEDS AT THIS TIME. CALL LIGHT WITHIN REACH.
--- NOTE | 2018-09-16 23:44 | NUR ---
PT RESTING IN BED, EYES CLOSED, SNORING, RR 12, ON 6LNC, NO SIGNS OF RESTLESNESS OR DISCOMFORT, PT'S FAMILY AT BEDSIDE, NO REQUESTS AT THIS TIME, SLIP COVER CUTTER INFUSING PER EMAR WNL, CALL LIGHT WITHIN REACH. PT REMAINS NONRESPONSIVE TO VERBAL STIMULI AND GENTLE TOUCH.
--- NOTE | 2018-09-17 00:04 | NUR ---
PT'S FAMILY TO CALL STATION REQUESTING THE PT'S MORPHINE DRIP BE TITRATED UP TO 5MG/HR BECAUSE THE FAMILY PLANS TO REMOVE THE OXYGEN FROM THE PT PER THE PT'S PREVIOUSLY STATED WISHES, PT'S MORPHINE CONTINUOUS DOSAGE TITRATED UP TO 5MG/HR PER FAMILIES REQUEST, 2 RN VERIFICATION WITH ALIRIO TRACY, QUESTIONS ANSWERED TO FAMILY, NO FURTHER NEEDS AT THIS TIME, CALL LIGHT WITHIN REACH.
--- NOTE | 2018-09-17 02:00 | NUR ---
ORAL CARE PROVIDED TO THE PT PER FAMILIES REQUEST, PT RESPONDED BY CLOSING HIS MOUTH TO CHAP STICK, NO OTHER RESPONSE TO VERBAL STIMULI OR GENTLE TOUCH, NO SIGNS OF DISTRESS OR DISCOMFORT, CALL LIGHT WITHIN REACH. FAMILY REMAINS AT BEDSIDE, ON 6LNC, MORHINE DRIP INFUSING AT 5MG/HR.
--- NOTE | 2018-09-17 02:35 | NUR ---
PT'S FAMILY MEMBER TO THE NURSES STATION REQUESTING THAT THE OXYGEN BE REMOVED FROM THE PT, IN ROOM TO REMOVE THE OXYGEN FROM THE PT, PT REMAINS TO BE RESTING IN BED, EYES CLOSED, RR 9, NO SIGNS OF DISCOMFORT OR DISTRESS, PT'S SKIN TONE APPEARS PALE, DUSKY, FAMILY REMAINS IN ROOM WITH PT, MORPHINE DRIP REMAINS INFUSING AT 5MG/HR PER FAMILIES REQUEST. NO FURTHER NEEDS AT THIS TIME, CALL LIGHT WITHIN REACH.
--- NOTE | 2018-09-17 03:40 | NUR ---
PT NOTED TO HAVE INCREASED ORAL SECRETIONS AND CURRENTLY HAS WHITE FROTHY SPUTUM RUNNING FROM HIS MOUTH, PT SUCTIONED PER FAMILIES REQUEST, PT'S FAMILY REQUESTED THAT PT NOT TO BE SUCTIONED AGAIN DUE TO THE PT NOT TOLERATING SUCTION WELL AND BITING THE YONKER, DR. ANDERSON CALLED AND NOTIFIED OF THE PT'S INCREASED SECRETIONS, RECEIVED ORDER FOR ATROPINE DROPS TO BE GIVEN ORALLY, SEE EMAR.
--- NOTE | 2018-09-17 04:00 | NUR ---
ATROPINE DROPS GIVEN TO PT PER EMAR, ORAL CARE PROVIDED, NO FURTHER NEEDS AT THIS TIME, FAMILY REMAINS AT BEDSIDE, CALL LIGHT WITHIN REACH.
--- NOTE | 2018-09-17 04:41 | NUR ---
PT IS CURRENTLY UNRESPONSIVE TO VERBAL STIMULI OR GENTLE TOUCH, PT HAS MORPHINE OCEAN FREIGHT AGENT RUNNING WITH CONTINUOUS RATE OF 5MG/HR PER FAMILIES REQUEST, PT'S BREATHS HAVE HAD APNEIC PERIODS, RR 8-10, ORAL CARE HAS BEEN PROVIDED, ATROPINE DROPS HAVE BEEN ADDED TO EMAR FOR ORAL SECRETIONS, PT'S FAMILY DID NOT WANT TO CONTINUE WITH ORAL SUCTIONING, FAMILY IN ROOM HAS BEEN VERY APPROPRIATE. PT IS CURRENTLY ON RA PER FAMILIES REQUEST, NO SIGNS OF DISCOMFORT OR RESTLESNESS THIS SHIFT.
--- NOTE | 2018-09-17 05:50 | NUR ---
PT'S FAMILY TO NURSING STATION, PT ASSESSED, NO APICAL PULSE NOTED, NO SIGNS OF RESPIRATIONS, NO PULSE FELT, 2 RN VERIFICATION WITH RN DEMARCUS, DR. ANDERSON NOTIFIED, RECORD CLERK, AND BLEACHER OPERATOR NOTIFIED. DR. ADNERSON IN ROOM TO DECLARE THE PT , THERAPEUTIC COMMUNICATION PROVIDED TO FAMILY. IV LINES DC'D, TERRAZZO LAYER MORPHINE SYRINGE WASTED WITH 2 RN VERIFICATION WITH ANNA AMEZQUITA IN SHARPS CONTAINER. PT .
--- NOTE | 2018-09-17 07:07 | NUR ---
ARRIVED AT HOSPITAL AFTER BEING CALLED FOR PT'S PASSING. ALL FAMILY THAT WAS PRESENT HAD ALREADY LEFT. I PHONED PT'S SON TO SEE IF THEY WERE GOING TO COME BACK OR IF THEY WERE READY TO HAVE THE BODY PICKED UP. THEY IDICATED THAT THEY WERE NOT COMING BACK. PT'S BODY WAS SENT TO [facility].
== END 2018-09-17 05:50 | DRG 189 ==
LOC: MS 13:45
PROVIDERS: ADMIT Internal Medicine
DX: J96.21 Acute and chronic respiratory failure with hypoxia (principal); N02.8 Recurrent and persistent hematuria with other morphologic changes; J43.9 Emphysema, unspecified; Z51.5 Encounter for palliative care; I73.9 Peripheral vascular disease, unspecified; M06.9 Rheumatoid arthritis, unspecified; I10 Essential (primary) hypertension; Z88.0 Allergy status to penicillin; Z87.891 Personal history of nicotine dependence; Z57.4 Occupational exposure to toxic agents in agriculture
CPT/HCPCS: J2270; J2405